=== PATIENT | female | born 1940 | race African-American/Black ===

== ENCOUNTER 2017-09-15 06:15 | Day surgery (SDC) | payer OTHER ==
[2017-09-13 14:41] LABS: Potassium 3.7 mEq/L (3.6-5.0)
[2017-09-13 14:47] LABS: Absolute Lymphocytes (CBC) 3.1 K/uL (0.7-4.9); Absolute Monocytes 0.7 K/uL (0.1-1.3); Absolute Neutrophil 3.7 K/uL (1.8-8.0); Basophils % 1.1 % (0-1.3); Eosinophils % 3.4 % (0-4.4); Hematocrit 41.5 % (36.0-45.0); Lymphocytes % 39.5 % (15.3-44.8); MCH 29.4 pg (27.0-35.0); MPV 10.7 fL (7.6-11.3); RBC Red Blood Cell Count 4.77 M/uL (3.86-4.86)
[2017-09-15] MEDS ORDERED: Ringers Lactate 1,000 ML IV ONE (06:19)
[2017-09-15] MEDS ORDERED: PROPOFOL 200 MG/20 ML VIAL IV ONE (07:12)
[2017-09-15] MEDS ORDERED: MIDAZOLAM HCL 2 MG/2 ML INJ ONE (07:12)
[2017-09-15] MEDS ORDERED: FENTANYL CITR 100 MCG/2 ML ONE (07:12)
[2017-09-15] MEDS ORDERED: LIDOCAINE 1% W/EPI 1:100,000 MDV 50 ML VIAL ONE (07:14)
[2017-09-15] MEDS ORDERED: NA CHLORIDE 0.9% 1,000 ML ONE (07:14)
--- NOTE | 2017-09-15 18:19 | OP ---
Date of Procedure: 09/15/2017 Surgeon: Kathleen Cardona MD Preoperative Diagnoses: Left lower quadrant pain, leiomyoma, thickened endometrium. Postoperative Diagnoses: Leiomyoma, endometrial polyp, left lower quadrant pain, and lichen simplex chronicus. Procedures Performed: 1.Hysteroscopy, using operative channel, polypectomy, and dilation and curettage. 2.Right perineal biopsy. Anesthesia: MAC plus paracervical block and local. Complications: No complications. Drains: No drains. Specimens: Endometrial polyp, curettings, and right perineal skin biopsy. Condition: Stable. Findings: In the uterine cavity that was anteflexed, both tubal ostia were visualized. There was a posterior sessile polyp about 1 cm completely adherent in its posterior aspect to the same width of t he posterior wall of the endometrial canal. Then lichen simplex chronicus very evident in the perine um, posterior aspect of the labia, and in the perianal areas, and therefore a biopsy was taken. Description Of Procedure: After informed consent was verified, she was taken back to the OR, placed in a supine fashion on the operating table. After MAC was given, she was placed in dorsal lithotomy position using Campos stirrups. Speculum was used to expose the cervix. Anterior lip injected with 1 % lidocaine mixed with 1:100,000 epinephrine, 7 cc here, then 7 cc at 4 and 8 o'clock positions at th e cervicovaginal junction for a paracervical block on each side. Once this was done, the cervix was prepped with Betadine x3. Anterior lip grasped with 2 Allis clamps and direct hysteroscopy using a S limLine hysteroscope. The cervical canal was entered directly and passed into the uterine cavity. T he findings were that there was an endometrial polyp that appeared to be vascular and hyperplastic, a nd the posterior aspect of this was adherent to the posterior aspect of the endometrial canal. So, I was attempting to scrape the polyp off the posterior wall using the tip of the camera, this was not working, and so I was unable to separate the polyp. So, the diagnostic scope was removed. Operative channel was placed using scissors through the operating channel. I took down the entire polyp in th e posterior wall, and this was removed with the help of graspers. Endometrial curettings were performed with a #1 curette. A very scant curettings were obtained. The n all the instruments were removed. Instrument, needle, and sponge counts were done and were correct . In the perineal area, the lichen simplex was very prominent. I injected it with 3 cc of local the n did an elliptical incision on the skin with the help of an 11-blade. The skin was excised, and the edges put together with the help of a 3-0 chromic in a [id number] fashion. There was excellent hemostasis. The patient tolerated the procedure well. She was recovered from anesthesia and taken to PACU in stable condition. She will follow up with me in 1 week for postop. JORDAN/ADAM Voice ID: [id number] Report ID: [id number]
== END 2017-09-15 08:57 | disposition home or self-care (01) ==
LOC: OR 06:15
PROVIDERS: ATTEND Obstetrics & Gynecology
PROC: 0UDB7ZX Extraction of Endometrium, Via Natural or Artificial Opening, Diagnostic (ICD-10-PCS; 2017-09-15)
PROC: 0UJD8ZZ Inspection of Uterus and Cervix, Via Natural or Artificial Opening Endoscopic (ICD-10-PCS; 2017-09-15)
PROC: 0WBN0ZX Excision of Female Perineum, Open Approach, Diagnostic (ICD-10-PCS; 2017-09-15)
PROC: 0UB97ZX Excision of Uterus, Via Natural or Artificial Opening, Diagnostic (ICD-10-PCS; principal; 2017-09-15 07:30)
DX: D25.9 Leiomyoma of uterus, unspecified (principal); L28.0 Lichen simplex chronicus; N84.0 Polyp of corpus uteri; I10 Essential (primary) hypertension; K57.90 Diverticulosis of intestine, part unspecified, without perforation or abscess without bleeding; M10.9 Gout, unspecified; Z91.048 Other nonmedicinal substance allergy status; Z79.82 Long term (current) use of aspirin; Z88.3 Allergy status to other anti-infective agents; Z80.7 Family history of other malignant neoplasms of lymphoid, hematopoietic and related tissues; Z82.49 Family history of ischemic heart disease and other diseases of the circulatory system
CPT/HCPCS: 36415; 56605; 58558; 80048; 85025; 88305; J2250; J3010; J7030

== ENCOUNTER 2020-11-10 16:21 | Emergency (ER) | payer MEDICARE, OTHER ==
[2020-11-10] MEDS ORDERED: LEVALBUTEROL 1.25 MG/3 ML NEB ONE (19:06)
[2020-11-10] MEDS ORDERED: MAGNESIUM SULFATE 1 gm IVPB 1 GM/100 ML BAG IV ONE (19:06)
[2020-11-10 19:33] LABS: Absolute Lymphocytes (CBC) 3.5 K/uL (0.7-4.9); Basophils % 0.6 % (0-1.3); Hematocrit 39.8 % (36.0-45.0); Lymphocytes % 30.4 % (15.3-44.8); MPV 9.3 fL (7.6-11.3); RBC Red Blood Cell Count 4.55 M/uL (3.86-4.86)
[2020-11-10 19:56] LABS: ALT/SGPT 20 U/L (12-78); AST/SGOT 21 U/L (15-37); Albumin 3.3 g/dL (3.4-5.0); Alkaline Phosphatase 67 U/L (45-117); BUN Blood Urea Nitrogen 16 mg/dL (7-18); Bicarbonate 28 mmol/L (21-32); Bilirubin Total 0.6 mg/dL (0.2-1.0); Glucose Level 88 mg/dL (74-106); Potassium 3.9 mmol/L (3.5-5.1); Protein, Total 8.9 g/dL (6.4-8.2); Sodium Level 136 mmol/L (136-145); Troponin (Emerg Dept Use Only) < 0.02 ng/mL (0.0-0.045)
[2020-11-10] MEDS ORDERED: CEFTRIAXONE/SWI 1gm 1 GM/10 ML SYR ONE (22:28)
[2020-11-10] MEDS ORDERED: dexAMETHasone 10 MG/ML VIAL ONE (22:28)
--- NOTE | 2020-11-11 07:51 | RAD REPORT ---
EXAM DESCRIPTION: RAD - Chest Single View - 11/10/2020 9:30 pm CLINICAL HISTORY: cough, fever COMPARISON: None TECHNIQUE: AP portable chest image was obtained 11/10/2020 9:30 pm . FINDINGS: No mass or consolidation. Lung markings at the left base are slightly increased relative t o the right but not definitive for infiltrate. Correlation is needed with any localizing exam finding s. There is no failure or volume overload present. Trachea is midline. Heart and vasculature are normal. No measurable pleural effusion and no pneumotho rax. No acute bony abnormality seen. No acute aortic findings suspected. IMPRESSION: No mass, consolidation or failure finding. Slight increase in lung markings noted at the left base on this baseline study. Minimal infiltrate ca nnot be excluded and needs correlation with exam findings.
--- NOTE | 2020-11-11 12:39 | EKG ---
Test Date: 2020-11-10 Test Time: 18:58:29 Business Process Consultant: TERRIE MEASUREMENT RESULTS: Intervals: Rate: 82 OH: 122 QRSD: 90 QT: 320 QTc: 373 Henderson: P: 47 OH: 122 QRS: 52 T: 57 INTERPRETIVE STATEMENTS: Normal sinus rhythm Nonspecific T wave abnormality Abnormal ECG Compared to ECG 09/07/2017 11:59:08 No significant changes Electronically Signed On 11-11-20 12:37:37 CDT by Phil Vela
--- NOTE | 2020-11-11 17:42 | ER ---
Nurse's Notes [facility] Name: You Briceño Age: 80 yrs Sex: Female : 1940 Arrival Date: 11/10/2020 Time: 16:24 Bed 23 Private MD: Diagnosis: Acute upper respiratory infection, unspecified Presentation: 11/10 17:19 Chief complaint: Patient states: Cough x 2 wks that just hasnt gone away. Denies fever kg at home. Pt saw PCP for it 2 wks ago and went to PCP today but was told they couldn't see her today, to come to ER. Coronavirus screen: Client denies travel out of the [place] in the last 14 days. At this time, unable to obtain information related to travel outside the [place] Client presents with at least one sign or symptom that may indicate coronavirus-19. Standard/surgical mask placed on the client. Provider contacted for isolation considerations. Ebola Screen: Patient negative for fever greater than or equal to 101.5 degrees Fahrenheit, and additional compatible Ebola Virus Disease symptoms Patient denies exposure to infectious person. Patient denies travel to an Ebola-affected area in the 21 days before illness onset. Initial Sepsis Screen: Does the patient meet any 2 criteria? No. Patient's initial sepsis screen is negative. Does the patient have a suspected source of infection? No. Patient's initial sepsis screen is negative. Risk Assessment: Do you want to hurt yourself or someone else? Patient reports no desire to harm self or others. Onset of symptoms was October 27, 2020. 17:19 Method Of Arrival: Ambulatory kg 17:19 Acuity: RORY 3 kg Triage Assessment: 17:22 General: Appears in no apparent distress. Behavior is calm, cooperative, appropriate kg for age, quiet. Pain: Complains of pain in diaphragm and xiphoid area. Historical: - Allergies: 17:22 Levofloxacin; kg - PMHx: 17:22 Hypertensive disorder; Gout; kg - PSHx: 17:22 tubal; kg - Immunization history:: Adult Immunizations up to date, Client reports receiving the 2nd dose of the Covid vaccine. - Social history:: Smoking status: Patient/guardian denies using tobacco, but has a distant history of tobacco abuse. Screenin:39 Abuse screen: Denies threats or abuse. Nutritional screening: No deficits noted. vg1 Tuberculosis screening: No symptoms or risk factors identified. Fall Risk No fall in past 12 months (0 pts). No secondary diagnosis (0 pts). IV access (20 points). Ambulatory Aid- None/Bed Rest/Nurse Assist (0 pts). Gait- Normal/Bed Rest/Wheelchair (0 pts) Mental Status- Oriented to own ability (0 pts). Total Myers Fall Scale indicates No Risk (0-24 pts). Assessment: 17:38 General: Appears in no apparent distress. comfortable, Behavior is calm, cooperative. vg1 Pain: Denies pain. Neuro: Level of Consciousness is awake, alert, obeys commands, Oriented to person, place, time, situation. Cardiovascular: Patient's skin is warm and dry. Respiratory: Reports cough that is productive, pain with cough Airway is patent Respiratory effort is even, unlabored, Breath sounds are diminished in left posterior lower lobe Breath sounds with wheezes in left upper lobe and left posterior upper lobe. GI: Patient currently denies nausea, vomiting. : No signs and/or symptoms were reported regarding the genitourinary system. EENT: No signs and/or symptoms were reported regarding the EENT system. Derm: Skin is intact, is healthy with good turgor. Musculoskeletal: Circulation, motion, and sensation intact. 19:57 Reassessment: Patient appears in no apparent distress at this time. Patient and/or vg1 family updated on plan of care and expected duration. Pain level reassessed. Patient is alert, oriented x 3, equal unlabored respirations, skin warm/dry/pink. Patient states feeling better. 20:51 Reassessment: Patient appears in no apparent distress at this time. Patient and/or vg1 family updated on plan of care and expected duration. Pain level reassessed. Patient is alert, oriented x 3, equal unlabored respirations, skin warm/dry/pink. Patient states feeling better. 21:47 Reassessment: Patient appears in no apparent distress at this time. Patient and/or vg1 family updated on plan of care and expected duration. Pain level reassessed. Patient is alert, oriented x 3, equal unlabored respirations, skin warm/dry/pink. Patient denies pain at this time. Patient states feeling better. Vital Signs: 17:19 BP 152 / 89; Pulse 83; Resp 20; Temp 99.3(O); Pulse Ox 99% on R/A; Weight 73.48 kg (R); kg Height 5 ft. 6 in. (167.64 cm); Pain 10/10; 17:39 BP 156 / 83; Pulse 84; Resp 20; Pulse Ox 99% ; vg1 18:00 BP 133 / 73; Pulse 80; Resp 16; Pulse Ox 99% ; vg1 19:00 BP 162 / 77; Pulse 82; Resp 12; Pulse Ox 99% ; vg1 19:56 BP 152 / 78; Pulse 88; Resp 16; Pulse Ox 99% ; vg1 20:00 BP 146 / 67; Pulse 80; Resp 16; Pulse Ox 99% on R/A; vg1 21:00 BP 120 / 82; Pulse 87; Resp 16; Pulse Ox 98% on R/A; vg1 17:19 Body Mass Index 26.15 (73.48 kg, 167.64 cm) kg ED Course: 16:24 Patient arrived in ED. mr 17:22 Triage completed. kg 17:28 Olivia Kay, RN is Primary Nurse. vg1 17:39 Patient has correct armband on for positive identification. Placed in gown. Bed in low vg1 position. Call light in reach. Side rails up X 1. Adult w/ patient. 17:40 Arm band placed on. vg1 17:43 Deo Stroud PA is PHCP. [facility] 17:43 Janes Vaughn MD is Attending Physician. [facility] 19:03 EKG done, by ED staff, reviewed by Deo DAVIES COVID swab sent to lab. Flu and/or vg1 RSV swab sent to lab. 19:17 Initial lab(s) drawn, by ak, sent to lab. Inserted saline lock: 22 gauge in left vg1 antecubital area, using aseptic technique. Blood collected. 19:17 First set of blood cultures drawn by me. vg1 19:35 Second set of blood cultures drawn by me. vg1 21:30 Chest Single View XRAY In Process Unspecified. EDMS 21:56 Report given to [facility]. vg1 22:57 No provider procedures requiring assistance completed. IV discontinued, intact, em bleeding controlled, No redness/swelling at site. Pressure dressing applied. Administered Medications: 19:26 Drug: Xopenex (levalbuterol) (3) 1.25 mg Route: Inhalation; vg1 19:56 Follow up: Response: No adverse reaction vg1 19:28 Drug: Magnesium Sulfate 1 grams Route: IVPB; Infused Over: 1 hrs; Site: left vg1 antecubital; 20:26 Follow up: Response: No adverse reaction; IV Status: Completed infusion; IV Intake: vg1 100ml 22:00 Drug: Rocephin (cefTRIAXone) 1 grams Route: IV; Rate: calculated rate; Site: left ld1 antecubital; 22:58 Follow up: Response: No adverse reaction; IV Status: Completed infusion; IV Intake: 10mlem 22:37 Drug: Decadron - Dexamethasone 10 mg Route: IVP; Site: left antecubital; em 22:46 Follow up: Response: No adverse reaction ld1 Intake: 20:26 IV: 100ml; Total: 100ml. vg1 22:58 IV: 10ml; Total: 110ml. em Outcome: 22:41 Discharge ordered by MD. oscar 22:57 Discharged to home ambulatory, with family. em 22:57 Condition: stable 22:57 Discharge instructions given to patient, family, Instructed on discharge instructions, follow up and referral plans. medication usage, Demonstrated understanding of instructions, follow-up care, medications, Prescriptions given X 2. 22:58 Patient left the ED. em Signatures: Dispatcher [employer] Deo Paulino PA PA jmm Rivera Carmela OcasioNoam, Olivia Gómez RN, RN RN vg1 Belkis Lo RN RN ld1 Margarita Lacy RN RN kg
--- NOTE | 2020-11-11 17:42 | EDPHYS ---
Physician Documentation [facility] Name: You Briceño Age: 80 yrs Sex: Female : 1940 Arrival Date: 11/10/2020 Time: 16:24 Bed 23 Private MD: ED Physician Janes Vaughn HPI: 11/10 18:37 This 80 yrs old Black Female presents to ER via Ambulatory with complaints of Cough. jmm 18:37 Onset: The symptoms/episode began/occurred gradually, 2 week(s) ago. Modifying factors: jmm The symptoms are alleviated by nothing, the symptoms are aggravated by nothing. Associated signs and symptoms: Pertinent negatives: fever. This is an 80-year-old female with history of hypertension that presents emerged part with complaints of cough and progressively worsening wheezing over the past 2 weeks. Patient denies fever. States she does have some chills. Denies vomiting.. Historical: - Allergies: 17:22 Levofloxacin; kg - PMHx: 17:22 Hypertensive disorder; Gout; kg - PSHx: 17:22 tubal; kg - Immunization history:: Adult Immunizations up to date, Client reports receiving the 2nd dose of the Covid vaccine. - Social history:: Smoking status: Patient/guardian denies using tobacco, but has a distant history of tobacco abuse. ROS: 18:37 Constitutional: Positive for chills. jmm 18:37 Respiratory: Positive for cough. 18:37 All other systems are negative. Exam: 18:37 Constitutional: This is a well developed, well nourished patient who is awake, alert, jmm and in no acute distress. Head/Face: atraumatic. Eyes: EOMI, no conjunctival erythema appreciated ENT: Moist Mucus Membranes Neck: Trachea midline, Supple Chest/axilla: Normal chest wall appearance and motion. Cardiovascular: Regular rate and rhythm. No edema appreciated 18:37 Back: Normal ROM Skin: General appearance color normal MS/ Extremity: Moves all extremities, no obvious deformities appreciated, no edema noted to the lower extremities Neuro: Awake and alert, normal gait Psych: Behavior is normal, Mood is normal, Patient is cooperative and pleasant 18:37 Respiratory: the patient does not display signs of respiratory distress, Respirations: normal, Breath sounds: wheezing: that is moderate, is heard diffusely. Vital Signs: 17:19 BP 152 / 89; Pulse 83; Resp 20; Temp 99.3(O); Pulse Ox 99% on R/A; Weight 73.48 kg (R); kg Height 5 ft. 6 in. (167.64 cm); Pain 10/10; 17:39 BP 156 / 83; Pulse 84; Resp 20; Pulse Ox 99% ; vg1 18:00 BP 133 / 73; Pulse 80; Resp 16; Pulse Ox 99% ; vg1 19:00 BP 162 / 77; Pulse 82; Resp 12; Pulse Ox 99% ; vg1 19:56 BP 152 / 78; Pulse 88; Resp 16; Pulse Ox 99% ; vg1 20:00 BP 146 / 67; Pulse 80; Resp 16; Pulse Ox 99% on R/A; vg1 21:00 BP 120 / 82; Pulse 87; Resp 16; Pulse Ox 98% on R/A; vg1 17:19 Body Mass Index 26.15 (73.48 kg, 167.64 cm) kg MDM: 18:37 Patient medically screened. oscar 22:39 Data reviewed: vital signs, nurses notes. Counseling: I had a detailed discussion with oscar the patient and/or guardian regarding: lab results, radiology results, the need for outpatient follow up, to return to the emergency department if symptoms worsen or persist or if there are any questions or concerns that arise at home. ED course: Decreased wheezing on reexamination. Patient states that she feels much better. I do not suspect sepsis at this time. Patient was prescribed oral antibiotics and otherwise given strict return precautions. Patient understood and agrees with plan of care.. 11/10 18:39 Order name: CBC with Diff; Complete Time: 19:34 [facility] 11/10 18:39 Order name: CMP; Complete Time: 19:59 [facility] 11/10 18:39 Order name: Troponin (emerg Dept Use Only); Complete Time: 19:59 [facility] 11/10 18:39 Order name: Procalcitonin; Complete Time: 21:03 [facility] 11/10 18:39 Order name: Lactate; Complete Time: 19:52 [facility] 11/10 18:39 Order name: Flu; Complete Time: 20:12 [facility] 11/10 18:44 Order name: Blood Culture Adult (2) [facility] 11/10 18:45 Order name: Blood Culture [facility] 11/10 20:28 Order name: SARS-COV-2 RT PCR; Complete Time: 20:28 [facility] 11/10 21:18 Order name: Chest Single View XRAY [facility] 11/10 18:39 Order name: Saline Lock; Complete Time: 19:22 [facility] 11/10 18:39 Order name: EKG - Nurse/Tech; Complete Time: 19:03 [facility] Administered Medications: 19:26 Drug: Xopenex (levalbuterol) (3) 1.25 mg Route: Inhalation; vg1 19:56 Follow up: Response: No adverse reaction vg1 19:28 Drug: Magnesium Sulfate 1 grams Route: IVPB; Infused Over: 1 hrs; Site: left vg1 antecubital; 20:26 Follow up: Response: No adverse reaction; IV Status: Completed infusion; IV Intake: vg1 100ml 22:00 Drug: Rocephin (cefTRIAXone) 1 grams Route: IV; Rate: calculated rate; Site: left ld1 antecubital; 22:58 Follow up: Response: No adverse reaction; IV Status: Completed infusion; IV Intake: 10mlem 22:37 Drug: Decadron - Dexamethasone 10 mg Route: IVP; Site: left antecubital; em 22:46 Follow up: Response: No adverse reaction ld1 Disposition: 11/11 06:04 Co-signature as Attending Physician, Janes Vaughn MD. rn Disposition Summary: 11/10/20 22:41 Discharge Ordered Location: Home [facility] Condition: Stable [facility] Diagnosis - Acute upper respiratory infection, unspecified [facility] Followup: [facility] - With: Private Physician - When: 2 - 3 days - Reason: Recheck today's complaints, Continuance of care, Re-evaluation by your physician Discharge Instructions: - Discharge Summary Sheet [facility] - Upper Respiratory Infection, Adult [facility] Forms: - Medication Reconciliation Form [facility] - Thank You Letter [facility] - Antibiotic Education [facility] - Prescription Opioid Use [facility] Prescriptions: - albuterol sulfate 90 mcg/actuation Inhalation HFA aerosol inhaler - inhale 2 puff by INHALATION route every 4 hours; 1 Inhaler; Refills: 0, Product [facility] Selection Permitted - Zithromax Z-Simon 250 mg Oral Tablet - take 1 tablet by ORAL route as directed for 5 days Day 1 - take two (2) tablets [facility] one time. Day 2, 3, 4 , 5 take one (1) tablet once daily.; 6 tablet; Refills: 0, Product Selection Permitted Signatures: Dispatcher [employer] Deo Paulino PA PA jmm Munoz, Edgar, RN RN Janes Ross MD MD rn Garcia, Victoria, RN RN vg1 Belkis Lo RN RN ld1 Margarita Lacy RN RN kg Corrections: (The following items were deleted from the chart) 11/10 19:35 18:40 CORONAVIRUS+MR.LAB.BRZ ordered. EDMS EDMS
[2020-11-12 14:59] VITALS: TEMP 99.3
[2020-11-12 15:09] VITALS: BP 120/82; O2SAT 98
== END 2020-11-10 22:58 | disposition home or self-care (01) ==
LOC: ER 16:21
DX: J06.9 Acute upper respiratory infection, unspecified (principal); I10 Essential (primary) hypertension; Z20.822 Contact with and (suspected) exposure to COVID-19; Z88.3 Allergy status to other anti-infective agents
CPT/HCPCS: 93005; 87040 ×2; 85025; 36415; 83605; 84484; 80053; 84145; 87804 ×2; 71045; U0003; J3475; J1100; J0696

== ENCOUNTER 2021-05-19 08:49 | Day surgery (SDC) | payer OTHER ==
[2021-05-19] MEDS ORDERED: Ringers Lactate 1,000 ML IV ONE (09:07)
[2021-05-19] MEDS ORDERED: LIDOCAINE 2% MPF 5 ML VIAL ONE ×2 (09:27→10:40)
[2021-05-19] MEDS ORDERED: propofoL 200 MG/20 ML VIAL IV ONE ×2 (09:27→10:40)
[2021-05-19] MEDS ORDERED: FENTANYL CITR 100 MCG/2 ML ONE ×2 (09:31→10:40)
[2021-05-19] MEDS ORDERED: LIDOCAINE 1% W/EPI 1:100,000 MDV 20 ML VIAL ONE (10:51)
[2021-05-19] MEDS ORDERED: ONDANSETRON 4 MG/2 ML VIAL ONE (11:31)
[2021-05-19] MEDS ORDERED: KETOROLAC 30 MG/ML INJ ONE (11:56)
[2021-05-19] MEDS ORDERED: IBUPROFEN 200 MG TAB PO PRN (12:11)
--- NOTE | 2021-05-19 12:13 | P.BOP ---
Preoperative diagnosis: PMB Postoperative diagnosis: same Primary procedure: hysteroscopy d/c (myosure lite ) used Estimated blood loss: min Specimen: EMC Findings: AF small cavity, increased erythema, no masses Anesthesia: General Complications: None Transferred to: Recovery Room Condition: Good
[2021-05-19 12:16] VITALS: O2SAT 100
[2021-05-19 14:11] VITALS: BP 143/64; TEMP 97.3
[2021-05-19] MEDS ORDERED: [UNRECOGNIZED DRUG - MIXTURE] TOP SCH (21:00)
[2021-05-20] MEDS ORDERED: HOME MED 1 EA UNK (Atenolol [Tenormin] 100 MG Tablet) PO SCH (06:00)
[2021-05-20] MEDS ORDERED: allopurinoL 100 MG TAB PO SCH (09:00)
[2021-05-20] MEDS ORDERED: HOME MED 1 EA UNK (Calcium Carbonate/Vitamin D3 [Caltrate 600 Plus D3 Tablet] Tablet) PO SCH (09:00)
--- NOTE | 2021-05-20 11:10 | OP ---
Date of Procedure: 05/19/2021 Surgeon: Kathleen Cardona MD Preoperative Diagnosis: Postmenopausal bleeding. Postoperative Diagnosis: Postmenopausal bleeding. Procedures Performed: Hysteroscopy, D and C, and MyoSure Lite was used to perform D and C. Estimated Blood Loss: Minimal. Specimens: Endometrial curettings. Findings: Small cavity, increased erythema on the endometrial lining with no masses were seen. The entire cavity was well visualized. Anesthesia: General with LMA. Complications: No complications. Condition: Stable. The patient has postmenopausal bleeding. Endometrium appeared to be thickened on transvaginal ultras ound, needed a biopsy, and given her age, it was do an adequate sample, so she was consent ed and brought to the OR. Procedure In Detail: After informed consent was verified, she was taken back to the OR and placed in supine fashion on the operating table. General anesthesia was given. She was placed in a dorsal po sition. Pelvic exam was performed. Speculum was placed to expose the cervix. Anterior lip was gras ped with a single-tooth tenaculum. This was done after . Then, the cervix was entered und er direct visualization with a diagnostic lens, and once I entered the uterine cavity and visualized, the scope was pulled out. Cervical dilators were used to dilate with a 16-Guamanian. Then, the MyoSur e device was taken. The scope was taken with primed MyoSure Lite device was inserted through to get an adequate sample and the tissue was very flat and I want to ensure there was adequate sampling. Th is was used to sample all agustin of the uterus without any problems. Then, once this was taken, the s ample was retrieved. The scope was removed after pictures were taken. All the instruments were vance jocelynn. Instrument, needle, and sponge counts were done and were correct at the end of the case. The p atient tolerated the procedure well. She was recovered from anesthesia and taken to PACU in stable c ondition. She has a 1-week follow up with me for discussion of the cultures. I attempted to call he r [id number], but I was unable to reach her at the number that the patient had shared. JORDAN/ADAM Voice ID: [id number] Report ID: [id number]
== END 2021-05-19 13:40 | disposition home or self-care (01) ==
LOC: OR 08:49
PROVIDERS: ATTEND Obstetrics & Gynecology
PROC: 0UJD8ZZ Inspection of Uterus and Cervix, Via Natural or Artificial Opening Endoscopic (ICD-10-PCS; 2021-05-19)
PROC: 0UDB7ZX Extraction of Endometrium, Via Natural or Artificial Opening, Diagnostic (ICD-10-PCS; principal; 2021-05-19 10:30)
DX: N95.0 Postmenopausal bleeding (principal); U07.1 COVID-19
CPT/HCPCS: 88305; 58558; U0002; J2704; J3010; J7120; J2405

== ENCOUNTER 2023-02-04 08:34 | Emergency (ER) | payer OTHER ==
--- OUTSIDE RECORDS SUMMARY | 2023-02-04 08:41 | XMS REPORT | Continuity of Care Document ---
:1940 Author Organization [facility] t Address [address] [place] [address] Care Team Providers Name Role Phone [email or web address] Attending Clinician Unavailable Luis Carlos Means Attending Clinician Fercho Pham Attending Clinician LUIS CARLOS MEANS Attending Clinician Unavailable FERCHO PHAM Attending Clinician Unavailable VISIT, NURSE MARIANNE DICKERSON Attending Clinician Unavailable Charli Tate Attending Clinician Edd Barahona Attending Clinician Lino Henderson Attending Clinician VISIT, NURSE LYNN MAMMTricia Attending Clinician Unavailable Carey Jya Attending Clinician Isadora Jacques Attending Clinician [email or web address] Admitting Clinician Unavailable Carey Jay Admitting Clinician Payers Payer Name Policy Type Policy Number Effective Date Expiration Date [employer] [id number] (MEDICARE REPLACEMENT/ADVANTAGE - PPO) Problems Condition Condition Condition Status Onset Resolution Last Treating Co mments Source Name Details Category Date Date Treatment Clinician Date Diverticul Diverticu Diagnosis Active 2022-04-24 Memoria itis litis 1-03 11:53:48 l (disorder) (disorder) 00:00: He rmann Active 00 04/20/2022 Diagnosis 04/24/2022 Medical Group, [facility] [place], [place],[facility] Gastroente rolvaleriy [place] Patient Patient Diagnosis Active 2021-042022-02-05 Memoria encounter encounter 04:47:38 l status status 00:00: Yury (finding) (finding) 00 Active 02/02/2022 Diagnosis 02/05/2022 Medical Group COPD COPD Diagnosis Active 2020-042021-05-12 Mem oria Active 12:42:00 l 04/15/2021 00:00: Rm ZEPEDA [place] FAMILY FAMILY Diagnosis Active 2021-01-05 Me morijonathon HISTORY OF HISTORY OF 12-20 10:27:00 l COLON COLON 00:00: Yury CANCER-Z80 CANCER-Z80 00 .0 .0 Active 12/20/2020 [place] R10.9 - R10.9 - Diagnosis Active 2020-08-04 Memoria UNSPECIFIE UNSPECIFIE 07-15 12:06:00 l D D 00:01: Yury ABDOMINAL ABDOMINAL 00 PAIN K57.8 PAIN K57.8 Active 07/15/2020 [facility] [place] DIVERTICUL DIVERTICU Diagnosis Active 2017-12-11 Memoria TIS LTIS 16 21:51:00 l Active 00:00: Yury 12/01/2017 00 [place] R10.32 - R10.32 - Diagnosis Active 2017-06-25 Memoria LEFT LOWER LEFT LOWER 3-06 10:39:00 l QUADRANT QUADRANT 00:01: Rm norris PAIN PAIN 00 K57.90 K57.90 Active 06/21/2017 [facility] [place] 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 Medical Group, [facility] [place], [facility] Hyperurice Problem Active 2017-04-16 M emoria shelley Hyperurice 9 01:17:10 l (disorder) shelley 00:00: Rm n (disorder) 00 Active 12/21/2013 Problem 04/16/2017 Data migrated from [employer] on 09/14/14. Medical Group Foot pain Foot pain Problem Active 2017-04-16 Memoria (finding) (finding) 12-10 01:17:10 l Active 00:00: Yury 12/10/2013 00 Problem 04/16/2017 Data migrated from [employer] on 09/14/14. Medical Group Swelling Swelling Problem Active 2017-04-16 Memoria of limb of limb 12-10 01:17:10 l (finding) (finding) 00:00: Stewart te Active 00 12/10/2013 Problem 04/16/2017 Data migrated from [employer] on 09/14/14. Medical Group Backache Backache Problem Active 2017-04-16 Memoria (finding) (finding) 07-05 01:17:10 l Active 00:00: Yury 07/05/2013 00 Problem 04/16/2017 Data migrated from [employer] on 09/14/14. Medical Group Hip pain Hip pain Problem Active 2017-04-16 Memoria (finding) (finding) 06-05 01:17:10 l Active 00:00: Yury 06/05/2013 00 Problem 04/16/2017 Data migrated from [employer] on 09/14/14. Medical Group Knee joint Knee Problem Active 2012-042017-04-16 M [facility] effusion joint 0- 01:17:10 l (disorder) effusion 00:00: Stewart te (disorder) 00 Active 02/07/2013 Problem 04/16/2017 Data migrated from [employer] on 09/14/14. Medical Group Neoplasm Neoplasm Problem Active 2017-04-16 Memoria of of 9-16 01:17:10 l uncertain uncertain 00:00: Stewart te behavior behavior 00 of skin of skin (disorder) (disorder) Active 01/01/2013 Problem 04/16/2017 Data migrated from [employer] on 09/14/14. Medical Group Acute Acute Problem Active 2017-04-16 Memor ia meniscal meniscal 6-03 01:17:10 l tear, tear, 00:00: Yury medial medial 00 (disorder) (disorder) Active 09/18/2012 Problem 04/16/2017 Data migrated from [email or web address] on 09/14/14. Medical Group Knee pain Knee Problem Active 2012-2017-04-16 Me moria (finding) pain 6-03 01:17:10 l (finding) 00:00: [place] Active 00 09/18/2012 Problem 04/16/2017 Data migrated from [email or web address] on 09/14/14. Medical Group Nausea Nausea Problem Active 2011-042017-04-16 Mem oria (finding) (finding) 1-06 01:17:10 l Active 00:00: Yury 02/22/2012 00 Problem 04/16/2017 Data migrated from [employer] on 09/14/14. Medical Group Left lower Left Problem Active 2011-042017-04-16 M emoria quadrant lower 0-22 01:17:10 l pain quadrant 00:00: Yury (finding) pain 00 (finding) Active 02/07/2012 Problem 04/16/2017 Data migrated from [employer] on 09/14/14. Medical Group Diverticul Diverticu Problem 2017-10-02 Memoria osis of losis of 11:21:50 l intestine, intestine, He rmann part part unspecifie unspecifie d, without d, without perforatio perforatio n or n or abscess abscess without without bleeding bleeding 10/02/2017 [facility] [place] Leiomyoma Leiomyoma Problem 2017-10-02 Memoria of uterus, of uterus, 11:21:50 l unspecifie unspecifie He rmann d d 10/02/2017 [facility] [place] Fatty Fatty Problem 2017-10-02 Memor ia (change (change 11:21:50 l of) liver, of) liver, He rmann not not elsewhere elsewhere classified classified 8 [facility] [place] Age-relate Age-relat Problem 2018-06-22 Memoria d ed 12:43:23 l osteoporos osteoporos He rmann is without is without current current pathologic pathologic al al fracture fracture 06/22/2018 [place] Arthritis Arthritis Problem Resolve 2021-09-25 Memoria (disorder) (disorder) d 03:44:43 l Resolved [place] [facility]20[facility] Gouty Gouty Problem Resolve 2021-09-25 Kenji kiera arthropath arthropath d 03:44:43 l y y Yury (disorder) (disorder) Resolved Problem 09/25/2021 [facility] [place] Hypertensi Hypertens Problem Resolve 2021-09-25 Memoria ve kisha d 03:44:43 l disorder, disorder, Herm te systemic systemic arterial arterial (disorder) (disorder) Resolved Problem 09/25/2021 [facility] [place] Eruption Eruption Problem Active 2017-04-16 Memoria due to due to 01:17:10 l drug drug Yury (disorder) (disorder) Active Problem 04/16/2017 Medical [facility] Hyponatrem Hyponatre Problem Active 2017-04-16 Memoria ia shelley 01:17:10 l (disorder) (disorder) He rmann Active Problem 04/16/2017 Data migrated from [email or web address] on 09/14/14. Medical [facility] Mass of Mass of Problem Active 2017-04-16 Me moria skin skin 01:17:10 l (finding) (finding) Herm te Active Problem 04/16/2017 [facility] Group Screening Screening Problem Active 2017-12-08 Memoria status status 16:44:40 l (finding) (finding) Herm te Active Problem 12/08/2017 [facility] [place] Shoulder Shoulder Problem Active 2017-04-16 Memoria pain pain 01:17:10 l (finding) (finding) Herm te Active Problem 04/16/2017 Right shoulder pain Medical [facility] Skin Skin Problem Active 2017-04-16 Memor ia lesion lesion 01:17:10 l (disorder) (disorder) He rmann Active Problem 04/16/2017 [facility] Group Weight Weight Problem Active 2017-12-08 Kenji kiera decreased decreased 16:44:40 l (finding) (finding) Herm te Active Problem 12/08/2017 [facility] [place] Osteoporos Problem Active 2021-01-07 M emoria is Osteoporos 21:46:31 l (disorder) is Rm n (disorder) Active Problem 01/07/2021 Data migrated from [email or web address] on 09/14/14. [facility] [place] Drug Drug Problem Active 2020-08-06 Memor ia therapy therapy 23:30:55 l finding finding Yury (finding) (finding) Active Problem 08/06/2020 Medical Group, [facility] [place], [place] Body mass Body mass Problem Active 2018-06-22 Memoria index index 12:43:23 l index index [place] - overweight overweight (finding) (finding) Active Problem 06/22/2018 Medical Group, [facility] [place], [place] Breast Breast Problem Active 2018-06-22 Kenji kiera neoplasm neoplasm 12:43:23 l screening screening Herm te (procedure (procedure ) ) Active Problem 06/22/2018 Medical Group, [place] Diverticul Problem Active 2022-08-12 M emoria ar disease Diverticul 09:25:08 l (disorder) ar disease He rmann (disorder) Active Problem 08/12/2022 Medical Group, [facility] [place], [facility],[facility] Essential Essential Problem Active 2022-08-12 Memoria hypertensi hypertensi 09:25:08 l on on Yury (disorder) (disorder) Active Problem 08/12/2022 Data migrated from [facility] on 09/14/14. 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 09:25:08 l et et [place] atrophicus atrophicus (disorder) (disorder) Active Problem 08/12/2022 [facility] Osteoarthr Osteoarth Problem Active 2022-08-12 Memoria itis ritis 09:25:08 l (disorder) (disorder) He rmann Active Problem 08/12/2022 Medical Group, [facility], [facility],[facility] Uterine Uterine Problem Active 2022-08-12 Me moria leiomyoma leiomyoma 09:25:08 l (disorder) (disorder) He rmann Active Problem 08/12/2022 Medical Group, [facility], [facility],[facility] Mixed Mixed Problem Active 2022-05-08 [facility] hyperlipid hyperlipid 08:55:53 l emia emomega Yury (disorder) (disorder) Active Problem 05/08/2022 Medical Group, [facility] [place],[facility] K57.92 - K57.92 - Diagnosis Active 2022-05-05 Memoria 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, INTEST, Yury PART UNSP, PART UNSP, Active [facility] [place] Respirator Respirato Problem Resolve 2017-04-16 2017-04-16 Memoria y ry d 07-15 01:17:10 01:17:10 l syncytial syncytial 00:00: Herm te virus virus 00 bronchitis bronchitis (disorder) (disorder) Resolved 07/16/2015 Problem 04/16/2017 Medical Group Long-term Problem Resolve 2011-042017-04-16 2017-04-16 Memoria drug Long-term d 01:17:10 01:17:10 l therapy drug 00:00: Yury (procedure therapy 00 ) (procedure ) Resolved 02/07/2012 Problem 04/16/2017 Data migrated from [facility] on 09/14/14. Medical Group History of Past Illness Condition Condition Condition Status Onset Resolution Last Treating Co mments Source Name Details Category Date Date Treatment Clinician Date Abnormal Abnormal Diagnosis 2022-08-12 2022-08-12 Memoria globulin globulin 4-24 09:25:08 09:25:08 l level level 21:29: [place] (finding) (finding) 00 08/09/2022 Diagnosis 08/12/2022 [facility] Internal Medicine Silva Diverticul Diverticu Diagnosis 2022-04-24 2022-04-24 Memoria a of la of 04-20 11:53:48 11:53:48 l intestine intestine 22:33: Herm te (disorder) (disorder) 00 04/20/2022 [facility] of History Diagnosis 2022-04-24 2022-04-24 Memoria polyp of of polyp 04-20 11:53:48 11:53:48 l colon of colon 22:33: [place] (situation (situation 00 ) ) 04/20/2022 Diagnosis 04/24/2022 [facility] Reinaldo Silva Vitamin D Vitamin D Diagnosis 2021-042022-02-05 2022-02-05 Memoria deficiency deficiency 0-18 04:47:38 04:47:38 l (disorder) (disorder) 15:45: He usha 02/02/2022 00 Diagnosis 02/05/2022 Medical Group, [facility] [place], [facility] Well adult Well Diagnosis 2021-042022-02-05 2022-02-05 Memoria monitoring adult 0-18 04:47:38 04:47:38 l check done monitoring 15:45: He usha (finding) check done 00 (finding) 02/02/2022 Diagnosis 02/05/2022 Medical Group Hidradenit Hidradeni Problem 2021-09-24 2021-09-24 Memoria is tis 09-21 01:59:31 01:59:31 l suppurativ suppurativ 20:29: Guillermo kerr a a 00 09/21/2021 2 Medical Group Vitamin D Vitamin D Problem 2021-08-27 2021-08-27 Memoria deficiency deficiency 08-24 01:49:07 01:49:07 l , , 18:10: Yury unspecifie unspecifie 00 d d 08/24/2021 2 Medical Group Essential Essential Problem 2021-08-27 2021-08-27 Memoria (primary) (primary) 08-24 01:49:07 01:49:07 l hypertensi hypertensi 18:10: Guillermo kerr on on 00 08/24/2021 2 Medical Group, [place] Gout, Gout, Problem 2021-08-27 2021-08-27 M emoria unspecifie unspecifie 08-24 01:49:07 01:49:07 l d d 18:10: Yury 08/24/2021 00 2 Medical Group, [place] Other Other Problem 2021-08-27 2021-08-27 M emoria abnormal abnormal 08-24 01:49:07 01:49:07 l glucose glucose 18:10: Yury 08/24/2021 00 2 Medical Group Mixed Mixed Problem 2021-08-27 2021-08-27 M emoria hyperlipid hyperlipid 08-24 01:49:07 01:49:07 l emia emia 18:10: Yury 08/24/2021 00 2 [facility] [place] Acute Acute Problem 2021-08-27 2021-08-27 M emoria upper upper 08-24 01:49:07 01:49:07 l respirator respirator 17:00: Guillermo kerr y y 00 infection, infection, unspecifie unspecifie d d 08/24/2021 08/27/2021 Medical Group Chronic Chronic Problem 2021-08-27 2021-08-27 Memoria obstructiv obstructiv 08-24 01:49:07 01:49:07 l e e 17:00: Yury pulmonary pulmonary 00 disease, disease, unspecifie unspecifie d d 08/24/2021 08/27/2021 Medical Group Personal Personal Problem 2020-042021-04-12 2021-04-12 Memoria history of history of 06-10 01:12:12 01:12:12 l nicotine nicotine 20:06: Rm n dependence dependence 00 04/09/2021 04/12/2021 Medical Group, [place] Impaired Impaired Problem 2020-042021-02-26 2021-02-26 Memoria fasting fasting 04-25 01:19:45 01:19:45 l glucose glucose 19:39: Yury 02/23/2021 00 02/26/2021 Medical Group Diverticul Diverticu Problem 2018-06-22 2018-06-22 Memoria itis of litis of 12-12 12:43:23 12:43:23 l large large 03:04: [place] intestine intestine 46 without without perforatio perforatio n or n or abscess abscess without without bleeding bleeding 12/12/2017 9 [facility] [place] Left lower Left Problem 2017-10-02 2017-10-02 Memoria quadrant lower 3-16 11:21:50 11:21:50 l pain quadrant 04:28: Yury pain 01 07/01/2017 8 [facility] [place] Allergies, Adverse Reactions, Alerts Allergy Allergy Status Severity Reaction(s) Onset Inactive Treating Comm ents Source Name Type Date Date Clinician levoflox levoflox Active Memori a acin<sup acin<sup l >1</sup> >1</sup> Rm n Social History Social Habit Start Date Stop Date Quantity Comments Source Social History 2020-12-31 2020-12-31 [facility] Jacob butts 16:37:36 16:37:36 Smoking Status Start Date Stop Date Source Tobacco smoking status 2022-08-09 18:53:22 2022-08-09 18:53:22 M emorial Yury Medications Ordered Filled Start Stop Current Ordering Indication Dosage Frequency Signature Comments Components Source Medication Medication Date Date Medication? Clinician (SIG) Name Name Albuterol Yes 2 Memoria (Eqv-ProAir 4-25 inhalation l HFA) 90 17:23: , Yury mcg/inh 00 INHALATION inhalation , Q6H, PRN aerosol NEEDED FOR WHEEZING, # 25.5 gm, 1 Refill(s), Pharmacy: [facility] ([facility]), 165.1, cm, 08/09/22 13:53:00 CDT, Height, 74.261, kg, 08/09/22 13:53:00 CDT, Weight allopurinol Yes = 2 tab, Me moria 100 mg oral 4-24 PO, Daily, l tablet 21:31: # 180 tab, Perlita nn 00 3 Refill(s), Pharmacy: [facility] ([facility] 165.1, cm, 08/09/22 13:53:00 CDT, Height, 74.261, kg, 08/09/22 13:53:00 CDT, Weight atenolol Yes = 1 tab, Memor ia 100 mg oral 2-08 PO, Daily, l tablet 03:20: # 100 tab, Perlita nn 00 3 Refill(s), Pharmacy: [facility] ([facility]), 167.64, cm, 04/21/22 11:06:00 HUMANITIES PROFESSOR, Height, 73.636, kg, 04/21/22 11:06:00 HUMANITIES PROFESSOR, Weight hydrochloro Yes 1 tab, PO, Memoria thiazide-tr 2-08 Daily, # l iamterene 03:20: 100 tab, 3 He rmann 25 mg-37.5 00 Refill(s), mg oral Pharmacy: tablet [facility] ([facility]), 167.64, cm, 04/21/22 11:06:00 HUMANITIES PROFESSOR, Height, 73.636, kg, 04/21/22 11:06:00 HUMANITIES PROFESSOR, Weight allopurinol Yes = 2 tab, Me moria 100 mg oral 1-09 PO, Daily, l tablet 19:09: # 180 tab, Perlita nn 00 0 Refill(s), Pharmacy: [facility] ([facility] 167.64, cm, 04/21/22 11:06:00 HUMANITIES PROFESSOR, Height, 73.636, kg, 04/21/22 11:06:00 HUMANITIES PROFESSOR, Weight Flagyl 500 2021-04 Yes 500 mg = 1 M emoria mg oral 2-30 tab, PO, l tablet 16:04: TID, X 14 Rm n 00 day, # 42 tab, 0 Refill(s), Pharmacy: [id number], 165.1, cm, 02/02/22 10:32:00 CDT, Height, 75.114, kg, 02/02/22 10:32:00 CDT, Weight ProAir HFA 2021-04 Yes 2 puff, Kenji kiera 90 mcg/inh 0-18 INHALER, l inhalation 16:23: Q6H, PRN Her loza aerosol 00 for with wheezing, adapter # 3 ea, 0 Refill(s), Pharmacy: [facility] ([facility]), 165.1, cm, 02/02/22 10:32:00 CDT, Height, 75.114, kg, 02/02/22 10:32:00 CDT, Weight Bactrim DS Yes 1 tab, PO, M emoria 800 mg- 160 6-06 BID, X 7 l mg oral 20:29: day, # 14 Perlita nn tablet 00 tab, 0 Refill(s), Pharmacy: [id number], 165.1, cm, 08/24/21 13:10:00 CDT, Height, 73.693, kg, 08/24/21 13:10:00 CDT, Weight ProAir HFA Yes 2 puff, Kenji kiera 90 mcg/inh 5-09 INHALER, l inhalation 18:43: Q6H, PRN Her loza aerosol 00 for with wheezing, adapter # 8 gm, 0 Refill(s), Pharmacy: [facility], 165.1, cm, 08/24/21 13:10:00 CDT, Height, 73.693, kg, 08/24/21 13:10:00 CDT, Weight atenolol 0 Yes 100 mg = 1 Mem oria 100 mg oral 5-09 tab, PO, l tablet 18:43: Daily, # Yury 00 90 tab, 3 Refill(s), Pharmacy: [facility], 165.1, cm, 08/24/21 13:10:00 CDT, Height, 73.693, kg, 08/24/21 13:10:00 CDT, Weight hydrochloro Yes 1 tab, PO, Memoria thiazide-tr 5-09 Daily, # l iamterene 18:43: 90 tab, 3 Her loza 25 mg-37.5 00 Refill(s), mg oral Pharmacy: tablet [facility], 165.1, cm, 08/24/21 13:10:00 CDT, Height, 73.693, kg, 08/24/21 13:10:00 CDT, Weight allopurinol 0 Yes = 2 tab, Me moria 100 mg oral 2-17 PO, Daily, l tablet 21:46: # 180 tab, Perlita nn 00 3 Refill(s), Pharmacy: [facility], 165.1, cm, 04/09/21 13:25:00 HUMANITIES PROFESSOR, Height, 72.273, kg, 04/09/21 13:25:00 HUMANITIES PROFESSOR, Weight 200 ACTUAT 2020-04 Yes 2 puff, Kenji kiera Albuterol 2-23 INHALER, l 0.09 20:09: Q6H, PRN Yury MG/ACTUAT 00 for Metered wheezing, Dose # 8.5 gm, Inhaler 0 [ProAir Refill(s), HFA] Pharmacy: [id number], 165.1, cm, 04/09/21 13:25:00 HUMANITIES PROFESSOR, Height, 72.273, kg, 04/09/21 13:25:00 HUMANITIES PROFESSOR, Weight lidocaine No Route: IV, Me moria (ANES) 9- Drug form: l 17:21: INJ, ONCE, Stop date: 01/05/21 12:21:00 CDT ePHEDrine No Route: IV, Me moria (ANES) 9-20 Drug form: l 17:21: INJ, ONCE, Stop date: 01/05/21 12:21:00 CDT propofol No Route: IV, Mem oria (ANES) 10 9- Drug form: l mg 17:08: INJ, Start Yury 00 date: 01/05/21 12:08:00 CDT, Stop date: 01/05/21 13:08:00 CDT Lactated No Route: IV, Mem oria Ringers 9-20 Total l Injection 17:04: Volume: Perlita nn IV (ANES) 00 1,000, 1000 mL Start date: 01/05/21 12:04:00 CDT, Stop date: 01/05/21 13:04:00 CDT benzonatate Yes 100 mg = 1 Memoria 100 MG Oral 7-28 cap, PO, l Capsule 21:33: Q8H, PRN Rm n [Tessalon 00 cough, do Perles] not crush or chew, X 10 day, # 30 cap, 0 Refill(s), Pharmacy: [id number], 165.1, cm, 10/27/20 14:10:00 CDT, Height, 74.602, kg, 10/27/20 14:10:00 CDT, Weight Diclofenac 2020-0 Yes 4 gm = 1 Mem oria Sodium 0.01 7-12 appl, TOP, l MG/MG 19:36: BID, PRN [place] Topical Gel 00 Apply to [Voltaren] affected area, # 100 gm, 1 Refill(s), Pharmacy: [facility], 165.1, cm, 10/27/20 14:10:00 CDT, Height, 74.602, kg, 10/27/20 14:10:00 CDT, Weight Calcium 0 Yes 1 tab, PO, Kenji kiera 600+D oral 7-12 BID, 0 l tablet 19:16: Refill(s) Rm n 00 Hydrochloro 0 Yes 1 tab, PO, Memoria thiazide 25 5-12 Daily, # l MG / 15:31: 90 tab, 3 [place] Triamterene 00 Refill(s), 37.5 MG Pharmacy: Oral Tablet [facility], 166.37, cm, 08/19/20 13:58:00 CDT, Height, 75.17, kg, 08/19/20 13:58:00 CDT, Weight Atenolol 0 Yes 100 mg = 1 Mem oria 100 MG Oral 5-11 tab, PO, l Tablet 16:02: Daily, # Yury 00 90 tab, 3 Refill(s), Pharmacy: [facility], 166.37, cm, 08/19/20 13:58:00 CDT, Height, 75.17, kg, 08/19/20 13:58:00 CDT, Weight allopurinol 0 Yes 200 mg = 2 Memoria 100 mg oral 5-05 tab, PO, l tablet 18:13: Daily, # Yury 00 180 tab, 3 Refill(s), Pharmacy: [facility], 166.37, cm, 08/19/20 13:58:00 CDT, Height, 75.17, kg, 08/19/20 13:58:00 CDT, Weight allopurinol No 200 mg = 2 Memoria 100 mg oral 5-05 tab, PO, l tablet 16:58: Daily, # Yury 00 180 tab, 3 Refill(s), Pharmacy: [facility], 166.37, cm, 08/19/20 13:58:00 CDT, Height, 75.17, kg, 08/19/20 13:58:00 CDT, Weight allopurinol No 200 mg = 2 Memoria 100 mg oral 5-05 tab, PO, l tablet 12:32: Daily, # [place] 00 180 tab, 3 Refill(s), Pharmacy: [id number], 166.37, cm, 08/19/20 13:58:00 CDT, Height, 75.17, kg, 08/19/20 13:58:00 CDT, Weight Metronidazo Yes 500 mg = 1 Memoria le 500 MG 3-26 tab, PO, l Oral Tablet 16:23: TID, X 14 H erm [Flagyl] , # 42 tab, 0 Refill(s), Pharmacy: [id number], 167.64, cm, 07/11/20 10:52:00 CDT, Height, 76.136, kg, 07/11/20 10:52:00 CDT, Weight 24 HR Yes 1.5 gm = 4 Memori a mesalamine 9-25 cap, PO, l 375 MG 18:19: QAM, # 360 Perlita nn Extended 00 cap, 1 Release Refill(s), Capsule Pharmacy: [[facility]] [facility] 24 HR Yes 1.5 gm = 4 Memori a mesalamine 3-07 cap, PO, l 375 MG 17:03: QAM, # 360 Perlita nn Extended 22 cap, 1 Release Refill(s), Capsule Pharmacy: [[facility]] [facility] dicyclomine Yes 10 mg = 1 M emoria 10 mg oral 3-07 cap, PO, l capsule 17:02: QID-Before Herm te 00 Meals, as needed for abdominal pain, # 60 cap, 1 Refill(s), Pharmacy: [id number] 24 No 1.5 gm = 4 Memori a mesalamine 1-07 cap, PO, l 375 MG 15:27: QAM, # 360 Perlita nn Extended 00 cap, 0 Release Refill(s), [facility] 24 HR 2017-04 No 1.5 gm = 4 Memori a mesalamine 2-20 cap, PO, l 375 MG 20:09: QAM, # 360 Perlita nn Extended 00 cap, 1 Release Refill(s), [facility] HR 2017-04 No 1.5 gm = 4 Memori a mesalamine 2-20 cap, PO, l 375 MG 18:09: QAM, # 120 Perlita nn Extended 00 cap, 5 Release Refill(s), Capsule Pharmacy: [[facility]] [id number] mesalamine No 4.8 gm = 4 M emoria 1200 MG 9-04 tab, PO, l Enteric 22:17: Daily, # Rm n Coated 54 360 tab, 1 Tablet Refill(s), [Lialda] BILLIE, Pharmacy: [facility], Brand necessary mesalamine No 4.8 gm = 4 M emoria 1200 MG 8-23 tab, PO, l Enteric 21:42: Daily, # Rm n Coated 00 120 tab, 5 Tablet Refill(s), [Lialda] BILLIE, [id number], Brand necessary mesalamine No 4.8 gm = 4 M emoria 1200 MG 8-18 tab, PO, l Enteric 18:39: Daily, # Rm n Coated 00 224 tab, 0 Tablet Refill(s), [Lialda] Pharmacy: [facility][id number] mesalamine No Notes: Memor ia -18 (Same as: l 14:00: Delzicol) Yury 00 Omnipaque No Notes: Memori a 300 12-03 (Same l injectable 13:35: as:Omnipaq H ermann solution 00 ue 300). WASTE: F/P - Black; E - [employer] mesalamine No 4.8 gm, 4 Me moria 1200 MG 8-18 tab, l Enteric 00:00: Route: PO, Herm te Coated 00 Drug form: Tablet ECTAB, Daily, Dosing Weight 73.409, kg, Start date: 12/02/17 19:00:00 CDT, Duration: 30 day, Stop date: 01/01/18 9:00:00 CDT Aspirin 81 2018- No 81 mg, 1 Mem oria MG Chewable 8-17 tab, l Tablet 14:00: Route: [place] 00 CHEW, Drug form: CHEWTAB, Daily, Dosing Weight 73.409, kg, Start date: 12/02/17 9:00:00 CDT, Duration: 30 day, Stop date: 12/31/17 9:00:00 CDT Hydrochloro No Notes: Kenji kiera thiazide 25 8-17 (triamtere l MG / 14:00: ne-hydroch Y[place] Triamterene 00 lorothiazi 37.5 MG de 37.5-25 Oral Tablet mg TAB) (Same As: Maxzide-25 ) Atenolol No Notes: Memoria 100 MG Oral 8-17 (Same l Tablet 14:00: As:Tenormi Perlita nn 00 n) Allopurinol No Notes: Kenji kiera 8-17 (Same as: l 14:00: Zyloprim) Ceftriaxone No Notes: Kenji kiera 8-17 (Same As: l 01:00: Rocephin). Use with 100 mL NS and infuse over 30 min MEDICATION WASTE Product Size: 1000 mg Product Wasted: ___ mg Metronidazo No Notes: Kenji kiera le 8-17 (Same as: l 01:00: Flagyl) Avoid alcohol. Morphine No Notes: Memoria 8-16 (Same l 23:27: as:MORPhin e Sulfate) Lactated No 1,000 mL, Kenji kiera Ringers IV 8-16 Rate: 100 l 1,000 mL 23:16: ml/hr, Infuse over: 10 hr, Route: IV, Dosing Weight 73.409 kg, Total Volume: 1,000, Start date: 12/01/17 18:16:00 CDT, Duration: 30 day, Stop date: 12/31/17 18:15:00 CDT, 1.87, m2 Saline No Notes: Memoria Flush 0.9% 12-01 (Same as: l 23:16: BD Y[place] 00 Posiflush) Ondansetron No Notes: Kenji kiera 12-01 (Same as: l 23:16: Zofran) MEDICATION WASTE Product Size: 4 mg Product Wasted: ___ mg Acetaminoph No Notes: Do M emoria en 12-01 not exceed l 23:16: 4 gm/day. [place] 00 (Same as: Tylenol) Acetaminoph No Notes: Kenji kiera en 325 MG / 12-01 (Same as: l Hydrocodone 23:16: [facility] Perlita nn Bitartrate 00 325/5) Do 5 MG Oral not exceed Tablet 4gm/day of acetaminop hen. Metronidazo No 500 mg = 1 Memoria le 500 MG 7-27 tab, PO, l Oral Tablet 15:05: TID, X 14 H [place] [Flagyl] 31 day, # 42 tab, 0 Refill(s), Pharmacy: [email or web address] #[id number] Amoxicillin No 1 tab, PO, Memoria 500 MG / 7-27 Q8H, X 14 l Clavulanate 15:05: day, # 42 H ermann 125 MG Oral 09 tab, 0 Tablet Refill(s), Pharmacy: [facility] #[id number] Metronidazo Yes 500 mg = 1 Memoria le 500 MG 6-07 tab, PO, l Oral Tablet 14:49: TID, X 14 H ermann [Flagyl] 00 day, # 42 tab, 0 Refill(s), Pharmacy: [email or web address] #[id number] Atenolol Yes 100 mg = 1 Mem oria 100 MG Oral 3-20 tab, PO, l Tablet 13:46: Daily, # Y[place] 00 90 tab, 3 Refill(s), Pharmacy: [facility] Hydrochloro Yes 1 tab, PO, Memoria thiazide 25 3-20 Daily, # l MG / 13:46: 90 tab, 3 [place] Triamterene 00 Refill(s), 37.5 MG Pharmacy: Oral Tablet [facility] allopurinol 2018-0 Yes 100 mg = 1 Memoria 100 mg oral 3-20 tab, PO, l tablet 13:46: Daily, # Y[place] 00 90 tab, 3 Refill(s), Pharmacy: [facility] Hydrochloro 2018-0 No 1 tab, PO, Memoria thiazide 25 3-08 Daily, # l MG / 18:44: 90 tab, 3 [place] Triamterene 44 Refill(s), 37.5 MG Pharmacy: Oral Tablet [facility] Atenolol 2017- No 100 mg = 1 Mem oria 100 MG Oral 3-08 tab, PO, l Tablet 18:44: Daily, # Yury 35 90 tab, 3 Refill(s), Pharmacy: [facility] allopurinol 2017- No 100 mg = 1 Memoria 100 mg oral 3-08 tab, PO, l tablet 18:44: Daily, # Yury 30 90 tab, 3 Refill(s), Pharmacy: [facility] dicyclomine No 10 mg = 1 M emoria 10 mg oral 2-15 cap, PO, l capsule 17:19: QID-Before Herm te 00 Meals, as needed for abdominal pain, # 60 cap, 1 Refill(s), Pharmacy: [facility] #[id number] Metronidazo 2017-0 No 500 mg = 1 Memoria le 500 MG 2-15 tab, PO, l Oral Tablet 17:19: Q8H, X 7 He rmann 00 day, # 21 tab, 0 Refill(s), Pharmacy: [facility]029 Amoxicillin 2018-0 No 1 tab, PO, Memoria 500 MG / 2-15 Q8H, X 7 l Clavulanate 17:19: day, # 21 H ermann 125 MG Oral 00 tab, 0 Tablet Refill(s), Pharmacy: [facility] #029 benzonatate 2017-0 No 100 mg = 1 Memoria 100 MG Oral 1-11 cap, PO, l Capsule 20:00: TID, X 14 Perlita nn [Tessalon 00 day, # 42 Perles] cap, 0 Refill(s), Pharmacy: [facility] #029 Sulfamethox 2018-0 No 1 tab, PO, Memoria azole 800 1-11 BID, X 10 l MG / 20:00: day, # 20 [place] Trimethopri 00 tab, 0 m 160 MG Refill(s), Oral Tablet Pharmacy: [facility] Aspirin 81 Yes 81 mg = 1 Me moria MG Chewable -11 tab, CHEW, l Tablet 19:39: Daily, 0 [place] 00 Refill(s) Vitamin D2 Yes 600mg tab, M emoria -11 PO, Daily, l 19:39: 0 [place] 00 Refill(s) clobetasol 2015-04 Yes See Memoria topical 0-29 Instructio l 0.05% cream 08:45: ns, # 60 He rmann 39 gm, Refill(s) 2, APPLY TO AFFECTED AREAS TWICE DAILY, Pharmacy: [facility] Immunizations Ordered Immunization Name Filled Date Status Comments Source Immunization Name [id number] Unknown Completed Memor ial bivalentboostMODERNA Herm te pneumococcal 23-valent Unknown Completed [facility] morial vaccine<sup>1</sup> Perlita nn influenza virus vaccine, Unknown Completed [facility] inactivated<sup>4</sup> H ermann [id number] Unknown Completed [facility] 3vaxMODERNA [place] influenza virus vaccine, Unknown Completed [facility] inactivated Yury [id number] Unknown Completed [facility] 3vaxMODERNA Yury [id number] Unknown Completed [facility] 3vaxMODERNA Yury [id number] Unknown Completed [facility] 3vaxMODERNA [place] influenza virus vaccine, Unknown Completed [facility] inactivated [place] influenza virus vaccine, Unknown Completed [facility] inactivated [place] influenza virus vaccine, Unknown Completed [facility] inactivated [place] influenza virus vaccine, Unknown Completed [facility] inactivated [place] influenza virus vaccine, Unknown Completed [facility] inactivated [place] influenza virus vaccine, Unknown Completed [facility] inactivated Yury pneumococcal 13-valent Unknown Completed [facility] morial vaccine [place] influenza virus vaccine, Unknown Completed [facility] inactivated<sup>1</sup> H ermann influenza virus vaccine, Unknown Completed [facility] inactivated<sup>5</sup> H ermann pneumococcal 23-valent Unknown Completed [facility] morial vaccine<sup>2</sup> Perlita nn pneumococcal 23-valent Unknown Completed [facility] morial vaccine<sup>2, 3</sup> He rmann Vital Signs Vital Name Observation Time Observation Value Comments Source Height 2022-08-09 18:53:00 5 [ft_i] [facility] [place] Weight 2022-08-09 18:53:00 [facility] BMI Calculated 2022-08-09 18:53:00 Memori al [place] Heart Rate 2022-08-09 18:53:00 [facility] Systolic (mm Hg) 2022-08-09 18:53:00 Kenji rial Y[place] Diastolic (mm Hg) 2022-08-09 18:53:00 Mem orial [place] Systolic (mm Hg) 2022-04-21 17:06:00 Kenji rial [place] Diastolic (mm Hg) 2022-04-21 17:06:00 Mem orial [place] Height 2022-04-21 17:06:00 5 [ft_i] [facility] Weight 2022-04-21 17:06:00 [facility] BMI Calculated 2022-04-21 17:06:00 Memori al [place] Height 2022-02-02 15:32:00 5 [ft_i] [facility] [place] Weight 2022-02-02 15:32:00 [facility] BMI Calculated 2022-02-02 15:32:00 Memori al [place] Heart Rate 2022-02-02 15:32:00 [facility] [place] Systolic (mm Hg) 2022-02-02 15:32:00 Kenji rial Y[place] Diastolic (mm Hg) 2022-02-02 15:32:00 Mem orial [place] Height 2021-09-21 19:43:00 165.1 cm [facility] Weight 2021-09-21 19:43:00 [facility] BMI Calculated 2021-09-21 19:43:00 Memori al [place] Temperature Oral (F) 2021-09-21 19:43:00 98.2 F [facility] Heart Rate 2021-09-21 19:43:00 [facility] [place] Systolic (mm Hg) 2021-09-21 19:43:00 Kenji rial Y[place] Diastolic (mm Hg) 2021-09-21 19:43:00 Mem orial [place] Temperature Oral (F) 2021-08-24 18:10:00 98.1 F [facility] [place] Heart Rate 2021-08-24 18:10:00 [facility] [place] Systolic (mm Hg) 2021-08-24 18:10:00 Kenji rial [place] Diastolic (mm Hg) 2021-08-24 18:10:00 Mem orial [place] Height 2021-08-24 18:10:00 165.1 cm [facility] Weight 2021-08-24 18:10:00 [facility] BMI Calculated 2021-08-24 18:10:00 Memori al [place] Temperature Oral (F) 2021-04-09 19:25:00 99.3 F [facility] Heart Rate 2021-04-09 19:25:00 [facility] [place] Systolic (mm Hg) 2021-04-09 19:25:00 Kenji rial [place] Diastolic (mm Hg) 2021-04-09 19:25:00 Mem orial [place] Height 2021-04-09 19:25:00 165.1 cm [facility] [place] Weight 2021-04-09 19:25:00 [facility] [place] BMI Calculated 2021-04-09 19:25:00 Memori al [place] Temperature Oral (F) 2021-02-23 19:16:00 97.5 F [facility] [place] Heart Rate 2021-02-23 19:16:00 [facility] [place] Systolic (mm Hg) 2021-02-23 19:16:00 Kenji rial Y[place] Diastolic (mm Hg) 2021-02-23 19:16:00 Mem orial [place] Height 2021-02-23 19:16:00 165.1 cm [facility] [place] Weight 2021-02-23 19:16:00 [facility] [place] BMI Calculated 2021-02-23 19:16:00 Memori al [place] Height 2020-12-31 16:31:00 167.64 cm [facility] [place] Weight 2020-12-31 16:31:00 [facility] [place] BMI Calculated 2020-12-31 16:31:00 Memori al [place] Systolic (mm Hg) 2020-10-27 19:10:00 Kenji rial [place] Diastolic (mm Hg) 2020-10-27 19:10:00 Mem orial [place] Heart Rate 2020-10-27 19:10:00 [facility] [place] Temperature Oral (F) 2020-10-27 19:10:00 97.3 F [facility] [place] Height 2020-10-27 19:10:00 165.1 cm [facility] [place] Weight 2020-10-27 19:10:00 [facility] [place] BMI Calculated 2020-10-27 19:10:00 Memori al [place] Height 2020-08-19 18:58:00 166.37 cm [facility] [place] Weight 2020-08-19 18:58:00 [facility] [place] BMI Calculated 2020-08-19 18:58:00 Memori al [place] Systolic (mm Hg) 2020-08-19 18:58:00 Kenji rial [place] Diastolic (mm Hg) 2020-08-19 18:58:00 Mem orial [place] Heart Rate 2020-08-19 18:58:00 [facility] [place] Temperature Oral (F) 2020-08-19 18:58:00 98.9 F [facility] [place] Systolic (mm Hg) 2020-07-11 15:52:00 Kenji rial [place] Diastolic (mm Hg) 2020-07-11 15:52:00 Mem orial [place] Heart Rate 2020-07-11 15:52:00 [facility] [place] Height 2020-07-11 15:52:00 167.64 cm [facility] [place] Weight 2020-07-11 15:52:00 [facility] [place] BMI Calculated 2020-07-11 15:52:00 Memori al [place] Height 2019-01-10 16:01:00 167.64 cm [facility] [place] Weight 2019-01-10 16:01:00 [facility] [place] BMI Calculated 2019-01-10 16:01:00 Memori al [place] Weight 2018-06-22 16:13:00 [facility] BMI Calculated 2018-06-22 16:13:00 Memori al [place] Height 2018-06-22 16:13:00 167.64 cm [facility] [place] Heart Rate 2018-06-22 16:13:00 [facility] [place] Systolic (mm Hg) 2018-06-22 16:13:00 Kenji rial [place] Diastolic (mm Hg) 2018-06-22 16:13:00 Mem orial [place] Weight 2018-02-02 15:48:00 [facility] [place] Temperature Oral (F) 2018-02-02 15:48:00 98.5 F [facility] Respitory Rate 2018-02-02 15:48:00 Memori al [place] Systolic (mm Hg) 2018-02-02 15:48:00 Kenji rial [place] Diastolic (mm Hg) 2018-02-02 15:48:00 Mem orial [place] Heart Rate 2018-02-02 15:48:00 [facility] [place] Height 2017-12-20 19:07:00 167.64 cm [facility] [place] BMI Calculated 2017-12-20 19:07:00 Memori al [place] Weight 2017-12-20 19:07:00 [facility] [place] Systolic (mm Hg) 2017-12-20 19:07:00 Kenji rial [place] Diastolic (mm Hg) 2017-12-20 19:07:00 Mem orial [place] Systolic (mm Hg) 2017-12-03 16:10:00 Kenji rial [place] Diastolic (mm Hg) 2017-12-03 16:10:00 Mem orial [place] Heart Rate 2017-12-03 16:10:00 [facility] [place] Respitory Rate 2017-12-03 16:10:00 Memori al [place] Temperature Oral (F) 2017-12-03 16:10:00 98.2 F [facility] [place] Heart Rate 2017-12-03 12:59:00 [facility] [place] Temperature Oral (F) 2017-12-03 12:59:00 98.1 F [facility] [place] Respitory Rate 2017-12-03 12:59:00 Memori al [place] Systolic (mm Hg) 2017-12-03 12:59:00 Kenji rial [place] Diastolic (mm Hg) 2017-12-03 12:59:00 Mem orial [place] Systolic (mm Hg) 2017-12-03 08:25:00 Kenji rial [place] Diastolic (mm Hg) 2017-12-03 08:25:00 Mem orial [place] Respitory Rate 2017-12-03 08:25:00 Memori al [place] Heart Rate 2017-12-03 08:25:00 [facility] [place] Temperature Oral (F) 2017-12-03 08:25:00 98.1 F [facility] [place] Height 2017-12-01 21:07:00 167.64 cm [facility] [place] Weight 2017-12-01 21:07:00 [facility] [place] BMI Calculated 2017-12-01 21:07:00 Memori al [place] BMI Calculated 2017-12-01 18:43:00 Memori al [place] Height 2017-12-01 18:43:00 167.64 cm [facility] [place] Weight 2017-12-01 18:43:00 [facility] [place] Systolic (mm Hg) 2017-12-01 18:43:00 Kenji rial [place] Diastolic (mm Hg) 2017-12-01 18:43:00 Mem orial [place] Weight 2017-11-11 14:02:00 [facility] [place] Heart Rate 2017-11-11 14:02:00 [facility] [place] Temperature Oral (F) 2017-11-11 14:02:00 98 F [facility] [place] Respitory Rate 2017-11-11 14:02:00 Memori al [place] Systolic (mm Hg) 2017-11-11 14:02:00 Kenji rial [place] Diastolic (mm Hg) 2017-11-11 14:02:00 Mem orial [place] Systolic (mm Hg) 2017-09-22 14:33:00 Kenji rial [place] Diastolic (mm Hg) 2017-09-22 14:33:00 Mem orial [place] Weight 2017-08-02 14:23:00 [facility] [place] Temperature Oral (F) 2017-08-02 14:23:00 98.5 F [facility] [place] Respitory Rate 2017-08-02 14:23:00 Memori al [place] Heart Rate 2017-08-02 14:23:00 [facility] [place] Systolic (mm Hg) 2017-08-02 14:23:00 Kenji rial [place] Diastolic (mm Hg) 2017-08-02 14:23:00 Mem orial [place] BMI Calculated 2017-06-16 17:06:00 Memori al [place] Height 2017-06-16 17:06:00 167.64 cm [facility] [place] Weight 2017-06-16 17:06:00 [facility] [place] Heart Rate 2017-06-16 17:06:00 [facility] [place] Systolic (mm Hg) 2017-06-16 17:06:00 Kenji rial [place] Diastolic (mm Hg) 2017-06-16 17:06:00 Mem orial [place] Height 2017-06-02 17:02:00 167.64 cm [facility] BMI Calculated 2017-06-02 17:02:00 Raoulsarah beth al Y[place] Weight 2017-06-02 17:02:00 [facility] [place] Systolic (mm Hg) 2017-06-02 17:02:00 Kenji rial [place] Diastolic (mm Hg) 2017-06-02 17:02:00 Mem orial [place] Heart Rate 2017-06-02 17:02:00 [facility] Weight 2017-04-28 19:35:00 [facility] [place] Systolic (mm Hg) 2017-04-28 19:35:00 Kenji rial [place] Diastolic (mm Hg) 2017-04-28 19:35:00 Mem orial [place] Temperature Oral (F) 2017-04-28 19:35:00 98.2 F [facility] Heart Rate 2017-04-28 19:35:00 [facility] Procedures Procedure Date / Time Performed Performing Clinician [facility] johnie Colonoscopy - repeat 2020-12-17 00:00:00 Daly Cotton 01/09<sup>1</sup> Mammogram - screening 2017-01-21 05:00:00 Rg Coon Colonoscopy 2016-03-16 06:00:00 [facility] Excision of cyst of [facility] breast Cataract surgery [facility] n Bilateral tubal ligation Daly Cotton Bone density [facility] scan<sup>2</sup> Encounters Start End Encounter Admission Attending Care Care Encounter Source Date/Time Date/Time Type Type Clinicians Facility Department ID 2023-02-07 2023-02-07 Outpatient MAJOR GONSALVES [id number] Memoria 13:20:00 13:20:00 60 matt Cotton 2023-02-03 2023-02-03 Outpatient [id number] PRIV PRIV [id number] [facility] 00:00:00 00:00:00 diyala_S [id number] Medic al 2023-01-31 2023-01-31 Outpatient KATELYNIE KATELYNIE [id number] Memoria 08:15:00 08:15:00 59 l Yury 2022-08-09 2022-08-10 Outpatient MAJOR [id number] Memoria 18:40:00 04:59:59 Internal 57 matt Silva 2022-08-09 2022-08-09 Outpatient Doug [facility] [id number] 13:40:00 23:59:59 Luis Carlos 57 [place] 2022-08-09 2022-08-09 Outpatient MHIE MHIE [id number] Memoria 13:40:00 13:40:00 57 l Yury 2022-07-27 2022-07-27 Outpatient MHIE MHIE [id number] Memoria 09:00:00 09:00:00 56 l Yury 2022-05-05 2022-05-06 Outpt Diag MHIE [facility] [id number] Memoria 18:18:00 05:59:00 Services Outpatient 02 l Imaging Y[place] 2022-05-05 2022-05-05 Outpatient Vero, 29 [id number] 12:18:00 23:59:00 Nadim Luis 02 2022-04-21 2022-04-22 Outpatient MHIE [facility] [id number] Memoria 17:00:00 05:59:59 Gastroenter 59 l kieran [place] 2022-04-21 2022-04-21 Outpatient Vero MG [facility] [id number] 11:00:00 23:59:59 Nadim Luis 59 2022-04-21 2022-04-21 Outpatient MHIE IE [id number] Memoria 11:00:00 11:00:00 57 l Yury 2022-04-16 2022-04-18 Phone MHIE [facility] [id number] Memoria 15:22:08 05:59:59 Message Gastroenter 22 l kieran Vannessa William te [facility] 2022-04-16 2022-04-17 Outpatient MG MG [id number] 09:22:08 23:59:59 22 2022-02-17 2022-02-17 Outpatient MHIE IE [id number] Memoria 08:15:00 08:15:00 53 matt Cotton 2022-02-02 2022-02-03 Outpatient nullFlavo [facility] [id number] Memoria 15:00:00 04:59:59 r Internal 54 l Jc Silva 2022-02-02 2022-02-02 Outpatient Doug [facility] [id number] 10:00:00 23:59:59 Luis Carlos 52 [place] 2022-02-02 2022-02-02 Outpatient MHIE MHIE [id number] Memoria 10:00:00 10:00:00 54 matt Cotton 2021-09-21 2021-09-23 Phone nullFlavo MG [id number] Memoria 20:11:28 04:59:59 Message r Internal 21 l [facility] Yury Silva 2021-09-21 2021-09-22 Outpatient MHMG MG [id number] 15:11:28 23:59:59 21 2021-09-21 2021-09-22 [place] [id number] Memoria 19:40:00 04:59:59 r Internal 56 l [facility] Yury Silva 2021-09-21 2021-09-21 Outpatient Doug [facility] [id number] 14:40:00 23:59:59 Luis Carlos 54 [place] 2021-09-21 2021-09-21 Outpatient IE IE [id number] Memoria 14:40:00 14:40:00 56 matt Cotton 2021-08-31 2021-08-31 Ambulatory nullFlavo [facility] [id number] Memoria 19:20:00 19:20:00 Pre-Reg r Internal 53 l [facility] Yury Silva 2021-08-31 2021-08-31 Outpatient IE IE [id number] Memoria 14:20:00 14:20:00 53 matt Yury 2021-08-31 2021-08-31 Outpatient Doug [facility] [id number] 14:20:00 14:20:00 Luis Carlos 51 [place] 2021-08-24 2021-08-25 [place] [id number] Memoria 18:00:00 04:59:59 r Internal 50 l [facility] Yury Silva 2021-08-24 2021-08-24 Outpatient Doug [facility] [id number] 13:00:00 23:59:59 Luis Cralos 48 [place] 2021-08-24 2021-08-24 Outpatient MHIE MHIE [id number] Memoria 13:00:00 13:00:00 50 matt Cotton 2021-08-172021-08-17 Outpatient MHIE MHIE [id number] Memoria 09:30:00 09:30:00 49 l Yury 2021-05-12 2021-05-13 Outpatient nullFlavo [facility] [id number] Memoria 18:34:00 05:59:00 bakari Cotton 27 matt Bhat suman 2021-05-12 2021-05-12 [facility] [id number] 12:34:00 23:59:00 Luis Carlos Shubham [place] 2021-05-12 2021-05-12 [facility] MED [id number] [facility] 12:34:00 23:59:00 LUIS CARLOS 2021-04-28 2021-04-28 [facility] [id number] 12:00:00 12:00:00 Luis Carlos Shubham [place] 2021-04-15 2021-04-17 Phone nullFlavo MG [id number] Memoria 19:51:50 05:59:59 Message r Internal 20 l Jc Thurstonberg 2021-04-15 2021-04-16 Outpatient MHMG MH[facility] [id number] 13:51:50 23:59:59 2021-04-09 2021-04-10 [place] [id number] Memoria 19:20:00 05:59:59 r Internal 52 l Jc Silva 2021-04-09 2021-04-09 [facility] [id number] 13:20:00 23:59:59 Luis Carlos [place] 2021-04-09 2021-04-09 Outpatient MHIE MHIE [id number] Memoria 13:20:00 13:20:00 50 matt Cotton 2021-03-18 2021-03-20 Phone nullFlavo [facility]MG [id number] Memoria 19:09:30 05:59:59 Message r Internal 19 l Medicine Yury Silva 2021-03-18 2021-03-19 Outpatient MHMG MHMG [id number] 13:09:30 23:59:59 19 2021-02-23 2021-02-24 Outpatient nullFlavo [facility]MG [id number] Memoria 19:20:00 05:59:59 r Internal 46 l Jc Silva 2021-02-23 2021-02-23 Outpatient Doug [facility] [id number] 13:20:00 23:59:59 Luis Carlos [place] 2021-02-23 2021-02-23 Outpatient MAJOR GONSALVES [id number] Memoria 13:20:00 13:20:00 46 matt Cotton 2021-02-16 2021-02-16 Outpatient MAJOR GONSALVES [id number] Memoria 07:15:00 07:15:00 47 matt Cotton 2021-01-05 2021-01-05 Bedded nullFlavo [facility] [id number] Memoria 15:14:00 18:06:00 Outpatient bakari Cotton 26 l Vannessa Bhat 2021-01-05 2021-01-05 Outpatient Vero, MHSL MHSL [id number] 10:14:00 13:06:00 Nadim Luis 24 2021-01-05 2021-01-05 Outpatient VERO, MHFB [facility]FB [id number] 10:14:00 13:06:00 NADIM 2021-01-05 2021-01-05 Outpatient Vero, MHSL MHSL [id number] 12:30:00 12:30:00 Nadim Luis 24 2020-12-23 2020-12-25 Phone nullFlavo [facility] [id number] Memoria 20:09:51 04:59:59 Message r Internal 18 l Jc Silva 2020-12-23 2020-12-24 Outpatient [facility] [id number] 15:09:51 23:59:59 18 2020-12-17 2020-12-19 Phone nullFlavo MG [id number] Memoria 19:07:41 04:59:59 Message r Gastroenter 17 l ologkrystal Vannessa tiwari [facility] 2020-12-17 2020-12-18 Outpatient [facility] [id number] 14:07:41 23:59:59 17 2020-11-12 2020-11-14 Phone nullFlavo MG [id number] Memoria 19:37:52 04:59:59 Message r Internal 16 l Medicine Yury [place] 2020-11-12 2020-11-13 Outpatient MHMG MH[facility] [id number] 14:37:52 23:59:59 16 2020-10-27 2020-10-28 Between nullFlavo [facility]MG [id number] Memoria 21:46:34 21:46:34 Visit r Internal 25 l [facility] Yury Silva 2020-10-27 2020-10-28 Outpatient MHMG MH[facility] [id number] 16:46:34 16:46:34 25 2020-10-27 2020-10-28 Outpatient nullFlavo [facility] [id number] Memoria 19:45:00 04:59:59 r Radiology 49 matt Abdalla jr 2020-10-27 2020-10-28 Outpatient nullFlavo [facility] [id number] Memoria 19:20:00 04:59:59 r Internal 48 l [facility] Yury Silva 2020-10-27 2020-10-27 Outpatient VISIT, MHMG MHMG [id number] 14:45:00 23:59:59 NURSE STRB 49 JAYLA 2020-10-27 2020-10-27 Outpatient [place], [facility] [id number] 14:20:00 23:59:59 Luis Carlos [place] 2020-10-27 2020-10-27 Outpatient MHIE MHIE [id number] Memoria 14:45:00 14:45:00 49 matt Cotton 2020-10-27 2020-10-27 Outpatient MHIE MHIE [id number] Memoria 14:20:00 14:20:00 46 matt Cotton 2020-08-27 2020-08-29 Phone nullFlavo [facility]MG [id number] Memoria 15:22:08 04:59:59 Message r Internal 15 l [facility] [place] Shira 2020-08-27 2020-08-28 Outpatient MHMG MHMG [id number] 10:22:08 23:59:59 15 2020-08-26 2020-08-28 Phone nullFlavo [facility]MG [id number] Memoria 15:47:49 04:59:59 Message r Internal 14 l [facility] Y[place] Silva 2020-08-26 2020-08-27 Outpatient MHMG MHMG [id number] 10:47:49 23:59:59 14 2020-08-20 2020-08-21 Between nullFlavo [facility] [id number] Memoria 12:32:13 12:32:13 Visit r Internal 22 l [facility] [place] 2020-08-20 2020-08-21 Outpatient [facility] [id number] 07:32:13 07:32:13 22 2020-08-19 2020-08-20 Outpatient nullFlavo [facility] [id number] Memoria 18:30:00 04:59:59 r Internal 45 l Medicine Y[place] 2020-08-19 2020-08-19 Outpatient Doug, [facility] [id number] 13:30:00 23:59:59 Luis Carlos 43 [place] 2020-08-19 2020-08-19 Outpatient KATELYNIE MAJOR [id number] Memoria 13:30:00 13:30:00 45 matt [place] 2020-08-04 2020-08-05 Outpt Diag nullFlavo [facility] [id number] Memoria 16:47:00 04:59:00 Services r Outpatient [address] [facility] 2020-08-04 2020-08-04 Outpatient Vero, MH29 [facility] [id number] 11:47:00 23:59:00 Nadim Luis 01 2020-07-11 2020-07-12 Outpatient nullFlavo [facility] [id number] Memoria 15:40:00 04:59:59 r Gastroenter 42 l ology [facility] 2020-07-11 2020-07-11 Outpatient Vero, MG [facility] [id number] 10:40:00 23:59:59 Nadim Luis 42 2020-07-11 2020-07-11 Outpatient KATELYNIE KATELYNIE [id number] Memoria 10:40:00 10:40:00 42 l Yury 2019-07-11 2019-07-11 Ambulatory nullFlavo [facility] [id number] Memoria 15:20:00 15:20:00 Pre-Reg r Gastroenter 41 l ology Yury Cameron 2019-07-11 2019-07-11 Outpatient MHIE KATELYNIE [id number] Memoria 10:20:00 10:20:00 41 matt Yury 2019-07-11 2019-07-11 Outpatient KATELYN PhamMG MG [id number] 10:20:00 10:20:00 Nadim Luis 41 2019-01-30 2019-02-01 Phone nullFlavo MG [id number] Memoria 20:11:47 04:59:59 Message r Gastroenter 13 l ologMarko Johnson 2019-01-30 2019-01-31 Outpatient [facility] MG [id number] 15:11:47 23:59:59 13 2019-01-10 2019-01-11 [place] [id number] Memoria 15:30:00 04:59:59 r Gastroenter 42 l ology Yury [place] 2019-01-10 2019-01-10 Outpatient Vero, KATELYNMG MG [id number] 10:30:00 23:59:59 Nadim Luis 42 2019-01-10 2019-01-10 Outpatient MHIE KATELYNIE [id number] Memoria 10:30:00 10:30:00 42 matt Yury 2018-08-03 2018-08-03 Ambulatory nullFlavo MG Family 3 [id number] Memoria 15:30:00 15:30:00 Pre-Reg r Medicine 38 matt [place] Yury 2018-08-03 2018-08-03 Outpatient MHIE IE [id number] Memoria 10:30:00 10:30:00 38 matt Yury 2018-08-03 2018-08-03 [facility] [id number] 10:30:00 10:30:00 Charli P 38 2018-07-27 2018-07-27 [place] [id number] Memoria 13:10:00 13:10:00 Pre-Reg r Internal 39 l Medicine Yury Vera 2018-07-27 2018-07-27 Outpatient MHIE MHIE [id number] Memoria 08:10:00 08:10:00 39 matt Cotton 2018-07-27 2018-07-27 Outpatient MHMG MG [id number] 08:10:00 08:10:00 39 2018-06-22 2018-06-23 [place] [id number] Memoria 16:30:00 05:59:59 r Gastroenter 37 l ology Yury [place] 2018-06-22 2018-06-22 [place] [id number] 10:30:00 23:59:59 Edd Garza 37 2018-06-21 2018-06-22 Between nullFlavo MG [id number] Memoria 23:58:23 23:58:23 Visit r Gastroenter 20 l ology Yury Jody 2018-06-21 2018-06-22 Outpatient MG MG [id number] 17:58:23 17:58:23 20 2018-06-22 2018-06-22 Outpatient MHIE MHIE [id number] Memoria 10:30:00 10:30:00 37 matt Cotton 2018-06-08 2018-06-08 [place] [id number] Memoria 20:45:00 20:45:00 Pre-Reg r Gastroenter 41 l ologkrystal Yury Silva 2018-06-08 2018-06-08 Outpatient MHIE IE [id number] Memoria 14:45:00 14:45:00 41 matt [place] 2018-06-08 2018-06-08 [place] [id number] 14:45:00 14:45:00 Edd Garza 41 2018-04-24 2018-04-26 Phone nullFlavo MG [id number] Memoria 15:27:00 05:59:59 Message r Gastroenter 12 l ologkrystal Sugar [facility] 2018-04-24 2018-04-25 Outpatient MG MG [id number] 09:27:00 23:59:59 12 2018-04-25 2018-04-25 [place] [id number] Memoria 20:30:00 20:30:00 Pre-Reg r Gastroenter 40 l danitaogkrystal [place] Silva 2018-04-25 2018-04-25 Outpatient MHIE MHIE [id number] Memoria 14:30:00 14:30:00 40 matt Cotton 2018-04-25 2018-04-25 [place] [id number] 14:30:00 14:30:00 Edd Garza 40 2018-04-06 2018-04-08 Phone nullFlavo MHMG [id number] Memoria 20:08:00 05:59:59 Message r Gastroenter 11 l kieran Vera 2018-04-06 2018-04-08 Phone nullFlavo [facility] [id number] Memoria 19:58:00 05:59:59 Message r Gastroenter 10 l kieran Silva 2018-04-06 2018-04-08 Phone nullFlavo MHMG [id number] Memoria 18:08:00 05:59:59 Message r Gastroenter 09 l kieran Vera 2018-04-06 2018-04-08 Phone nullFlavo MHMG [id number] Memoria 15:18:00 05:59:59 Message r Gastroenter 08 matt Vera 2018-04-06 2018-04-07 Outpatient MHMG MHMG [id number] 14:08:00 23:59:59 11 2018-04-06 2018-04-07 Outpatient MHMG MHMG [id number] 13:58:00 23:59:59 10 2018-04-06 2018-04-07 Outpatient MHMG MHMG [id number] 12:08:00 23:59:59 09 2018-04-06 2018-04-07 Outpatient MHMG MHMG [id number] 09:18:00 23:59:59 08 2018-02-02 2018-02-03 Outpatient nullFlavo [facility] Family 3 [id number] Memoria 15:30:00 04:59:59 r Medicine 32 matt Vera Yury 2018-02-02 2018-02-02 Outpatient Bebeto MG [facility] [id number] 10:30:00 23:59:59 Charli Martinez 32 2018-02-02 2018-02-02 Outpatient MHIE MHIE [id number] Memoria 10:30:00 10:30:00 32 matt Yury 2018-01-25 2018-01-25 Ambulatory nullFlavo [facility] [employer] MA[employer]GER 3 [id number] Memoria 15:30:00 15:30:00 Pre-Reg r [place] 23 matt Yury 2018-01-25 2018-01-25 Ambulatory nullFlavo [facility] [id number] Memoria 15:00:00 15:00:00 Pre-Reg r Radiology 22 matt Vera Yury 2018-01-25 2018-01-25 Outpatient MHIE IE [id number] Memoria 10:30:00 10:30:00 22 matt Yury 2018-01-25 2018-01-25 Outpatient Beatriz MG MG [id number] 10:30:00 10:30:00 , 23 Lino Cummings 2018-01-25 2018-01-25 Outpatient VISIT, MG MG [id number] 10:00:00 10:00:00 NURSE STWC 22 MAMMO 2017-12-20 2017-12-21 [place] [id number] Memoria 19:00:00 04:59:59 r Gastroenter 36 l kieran Silva 2017-12-20 2017-12-20 Outpatient Jun, [facility] [id number] 14:00:00 23:59:59 Edd Garza 36 2017-12-20 2017-12-20 Outpatient MHIE IE [id number] Memoria 14:00:00 14:00:00 36 matt Cotton 2017-12-08 2017-12-10 Phone nullFlavo MG [id number] Memoria 21:42:00 04:59:59 Message r Gastroenter 07 l asmitakrystal Yury Vera 2017-12-08 2017-12-09 Outpatient MG MG [id number] 16:42:00 23:59:59 07 2017-12-06 2017-12-08 Phone nullFlavo MG [id number] Memoria 15:07:00 04:59:59 Message r Gastroenter 06 l danitasilveriokrystal Yury Vera 2017-12-06 2017-12-07 Outpatient MG MG [id number] 10:07:00 23:59:59 06 2017-12-01 2017-12-03 Inpatient nullFlavo [facility] [id number] Memoria 20:48:00 21:47:00 bakari Cotton 04 l Vannessa will 2017-12-01 2017-12-03 Outpatient KATELYN JaySL MHSL [id number] 15:48:00 16:47:00 Noha 04 2017-12-01 2017-12-02 [place] [id number] Memoria 18:45:00 04:59:59 r Gastroenter 35 matt Silva 2017-12-01 2017-12-01 Outpatient Jun MHMG MHMG [id number] 13:45:00 23:59:59 Edderickson Muñozn 35 2017-12-01 2017-12-01 Outpatient MHIE MHIE [id number] Memoria 13:45:00 13:45:00 35 matt Yury 2017-11-11 2017-11-12 Outpatient nullFlavo [facility] Family 3 [id number] Memoria 14:00:00 04:59:59 r Medicine 34 matt Cotton 2017-11-11 2017-11-11 Outpatient Bebeto, MG [facility] [id number] 09:00:00 23:59:59 Charli P 34 2017-11-11 2017-11-11 Outpatient MHIE MHIE [id number] Memoria 09:00:00 09:00:00 34 matt Yury 2017-09-22 2017-09-23 Outpatient nullFlavo [facility] Family 3 [id number] Memoria 14:40:00 04:59:59 r Medicine 33 matt Cotton 2017-09-21 2017-09-23 Phone nullFlavo [facility]MG [id number] Memoria 20:36:00 04:59:59 Message r Gastroenter 05 matt Silva 2017-09-22 2017-09-22 Outpatient Bebeto, MG [facility]MG [id number] 09:40:00 23:59:59 Charli P 33 2017-09-21 2017-09-22 Outpatient MHMG MHMG [id number] 15:36:00 23:59:59 05 2017-09-22 2017-09-22 Outpatient MHIE MHIE [id number] Memoria 09:40:00 09:40:00 33 matt Yury 2017-08-02 2017-08-03 Outpatient nullFlavo [facility] Family 3 [id number] Memoria 14:30:00 04:59:59 r Medicine 25 matt Williamann 2017-08-02 2017-08-02 Outpatient Bebeto, MG [facility] [id number] 09:30:00 23:59:59 Charli P 25 2017-08-02 2017-08-02 Outpatient Bebeto, MG [facility] [id number] 09:30:00 23:59:59 Charli Martinez 25 2017-08-02 2017-08-02 Outpatient MHIE MHIE [id number] Memoria 09:30:00 09:30:00 25 matt Cotton 2017-07-05 2017-07-07 Phone nullFlavo MG Family [id number] Memoria 13:29:00 04:59:59 Message r Medicine 04 matt Cotton 2017-07-05 2017-07-06 Outpatient MHMG MG [id number] 08:29:00 23:59:59 04 2017-06-25 2017-06-26 Outpt Diag nullFlavo [facility] [id number] Memoria 16:29:00 05:59:00 Services r Outpatient 00 matt Johnson 2017-06-25 2017-06-25 Outpatient KATELYN [address] [place] [address] [id number] 10:29:00 23:59:00 Edd Muñozn 00 2017-06-23 2017-06-25 Phone nullFlavo MG Family [id number] Memoria 16:17:00 05:59:59 Message r Medicine 03 matt Cotton 2017-06-23 2017-06-24 Outpatient MHMG MG [id number] 10:17:00 23:59:59 03 2017-06-23 2017-06-24 Outpatient MHMG MHMG [id number] 10:17:00 23:59:59 03 2017-06-16 2017-06-17 [place] [id number] Memoria 17:15:00 05:59:59 r Gastroenter 31 l kieran Vera 2017-06-16 2017-06-16 [place] [id number] 11:15:00 23:59:59 Edderickson Muñozn 31 2017-06-16 2017-06-16 Outpatient MHIE MHIE [id number] Memoria 11:15:00 11:15:00 31 matt Cotton 2017-06-02 2017-06-03 [place] [id number] Memoria 17:15:00 05:59:59 r Gastroenter 30 l kieran Vera 2017-06-02 2017-06-02 [place] [id number] 11:15:00 23:59:59 Edd Garza 30 2017-06-02 2017-06-02 Outpatient MHIE MHIE [id number] Memoria 11:15:00 11:15:00 30 matt Yuyr 2017-05-04 2017-05-04 Ambulatory nullFlavo [facility] [id number] Memoria 17:30:00 17:30:00 Pre-Reg r Gastroenter 29 matt alcaraz Yury Silva 2017-05-04 2017-05-04 Outpatient MHIE MHIE [id number] Memoria 11:30:00 11:30:00 29 matt Yury 2017-05-04 2017-05-04 Outpatient Vero, MHMG MHMG [id number] 11:30:00 11:30:00 Fercho Smith 29 2017-04-28 2017-04-29 Outpatient nullFlavo [facility] Family 3 [id number] Memoria 20:00:00 05:59:59 r Medicine 28 matt Jody Cotton 2017-04-28 2017-04-28 Outpatient Georgie, MHMG MHMG [id number] 14:00:00 23:59:59 Isadora Steffanie Wood 2017-04-28 2017-04-28 Outpatient MHIE MHIE [id number] Memoria 14:00:00 14:00:00 28 matt Cotton 2017-04-13 2017-04-13 Ambulatory nullFlavo [facility] Family 3 [id number] Memoria 17:00:00 17:00:00 Pre-Reg r Medicine 27 matt Jody Cotton 2017-04-13 2017-04-13 Outpatient MHIE MHIE [id number] Memoria 11:00:00 11:00:00 27 matt Cotton 2017-04-13 2017-04-13 Outpatient Bebeto, MHMG MHMG [id number] 11:00:00 11:00:00 Charli Martinez 27 2017-02-23 2017-02-23 Outpatient MHIE MHIE [id number] Memoria 13:00:00 13:00:00 24 matt Cotton 2017-02-09 2017-02-09 Outpatient MHIE MHIE [id number] Memoria 11:15:00 11:15:00 26 matt Cotton 2017-01-28 2017-01-28 Outpatient MHIE MHIE [id number] Memoria 10:30:00 10:30:00 20 matt Cotton 2017-01-20 2017-01-20 Outpatient MHIE MHIE [id number] Memoria 10:30:00 10:30:00 12 matt Cotton 2017-01-20 2017-01-20 Outpatient MHIE MHIE [id number] Memoria 10:00:00 10:00:00 11 matt Cotton 2017-01-20 2017-01-20 Outpatient MHIE MHIE [id number] Memoria 10:00:00 10:00:00 21 matt Cotton 2016-07-30 2016-07-30 Outpatient MHIE MHIE [id number] Memoria 11:15:00 11:15:00 14 matt Cotton 2016-07-15 2016-07-15 Outpatient MHIE MHIE [id number] Memoria 14:30:00 14:30:00 19 matt Cotton 2016-06-03 2016-06-03 Outpatient MHIE MHIE [id number] Memoria 16:15:00 16:15:00 16 matt Cotton 2016-06-03 2016-06-03 Outpatient MHIE MHIE [id number] Memoria 15:45:00 15:45:00 18 matt Cotton 2016-06-03 2016-06-03 Outpatient MHIE MHIE [id number] Memoria 15:45:00 15:45:00 17 matt Cotton 2016-05-28 2016-05-28 Outpatient MHIE MHIE [id number] Memoria 15:00:00 15:00:00 15 matt Cotton 2016-01-30 2016-01-30 Outpatient MHIE MHIE [id number] Memoria 11:15:00 11:15:00 09 matt Cotton 2016-01-16 2016-01-16 Outpatient MHIE MHIE [id number] Memoria 11:45:00 11:45:00 13 matt Cotton 2016-01-16 2016-01-16 Outpatient MHIE MHIE [id number] Memoria 11:00:00 11:00:00 03 matt Cotton 2016-01-16 2016-01-16 Outpatient MHIE MHIE [id number] Memoria 10:30:00 10:30:00 02 matt Cotton 2015-10-14 2015-10-14 Outpatient MHIE MHIE [id number] Memoria 14:30:00 14:30:00 10 matt Cotton 2015-07-30 2015-07-30 [id number] Memoria 11:15:00 11:15:00 04 matt Cotton 2015-07-22 2015-07-22 [facility] [id number] Memoria 16:00:00 16:00:00 08 matt Cotton 2015-07-16 2015-07-16 Outpatient [facility] [id number] Memoria 13:15:00 13:15:00 06 matt Cotton 2015-07-16 2015-07-16 [facility] [id number] Memoria 13:15:00 13:15:00 07 matt Cotton 2015-07-16 2015-07-16 Outpatient [facility] [id number] Memoria 11:00:00 11:00:00 05 matt Cotton 2015-01-24 2015-01-24 [facility] [id number] Memoria 13:30:00 13:30:00 01 matt Cotton 2014-11-14 2014-11-14 [facility] [id number] Memoria 11:30:00 11:30:00 00 matt Cotton Results Test Description Test Time Test Comments Results Result Comments Source [facility]22-[facility]-06 16:13:19 Test Item Value Reference Range Interpretation Comme nts RADT (test code = RADRPT) EXAM: Abdomen/Pelvis w IV contrast CTDA TE: 05/05/2022 12:46.INDICATION: - diverticulitis.COMPARISON: CT abdomen pelvis 08/04/2020.TECHNIQUE: Volumetric CT acquisition of the abdomen and pelvis after the administration of intravenous contrast. Axial, coronal and sagittal reconstructions.AEC, mA/kV adjustment by patient size, and/or iterative reconstruction technique were used, per departmental dose-optimization program.Contrast phases: Venous and Delayed.IV contrast: 100 mL Omnipaque 300.Oral contrast: Omni mix.DLP: 418.92 mGy-cm.FINDINGS:Lines and Tubes: None.Lower Thorax: Stable 3 mm nodule in the right lower lobe, likely benign.Liver and Biliary Tree: There is diffuse fatty infiltration of the liver. No worrisome focal hepatic lesions are identified. The hepatic contour is smooth. There is no intrahepatic biliary ductal dilatation.Gallbladder: Normal. No CT evidence of gallstones.Adrenals: Normal.Spleen: Normal.Pancreas: Normal.Kidneys and Ureters: Normal. No hydronephrosis. There is bilateral excretion of contrast on the delayed images.Bladder: Contracted which limits its evaluation.Reproductive Organs: Partially calcified uterine fibroid.Gastrointestinal Tract: Colonic and small bowel diverticula are seen without surrounding inflammatory changes. No bowel wall thickening or dilatation.Appendix: NormalPeritoneum and Retroperitoneum: No free air or ascites.Lymph Nodes: No lymphadenopathy.Vasculature: Mild aortic atherosclerosis without aneurysm.Bones: No acute abnormality. There are degenerative changes in the lower lumbar spineSoft Tissues: No acute findings. A tiny, fat-containing umbilical hernia is present.IMPRESSION:No acute findings in the abdomen or pelvis. [facility]DhkdncfLLJLNIAVOE3062-32-26 19:58:00 Test Item Value Reference Range Interpretation Comments Coronavirus (COVID-19) Not Detected ARGENIS (test code = *NA*(05/08/21 1:58 PM) Coronavirus (COVID-19) ARGENIS) [facility]BV5073-39-59 18:21:00 Test Item Value Reference Range Interpretation Comments Coronavirus (COVID-19) Not Detected ARGENIS (test code = *NA*(01/02/21 1:21 PM) Coronavirus (COVID-19) ARGENIS) [facility]2021-05-04 19:40:00 Test Item Value Reference Range Interpretation Comments Glucose Lvl (test code = Glucose Lvl) 91 65-99 [facility] [id number] 19:40:00 Test Item Value Reference Range Interpretation Comments BUN (test code = BUN) 17 7-25 [facility]2021-05-04 19:40:00 Test Item Value Reference Range Interpretation Comments Creatinine Lvl (test code = Creatinine 0.84 0.60-0.88 Lvl) [facility]2021-05-04 19:40:00 Test Item Value Reference Range Interpretation Comments eGFR NON-AFR. PALESTINIAN (test code = 65 eGFR NON-AFR. PALESTINIAN) [facility]2021-05-04 19:40:00 Test Item Value Reference Range Interpretation Comments eGFR (test code = eGFR 75 ) [facility] [id number] 19:40:00 Test Item Value Reference Range Interpretation Comments B/C Ratio (test code = B/C NOT APPLICABLE 6-22 Ratio) [facility]2021-05-04 19:40:00 Test Item Value Reference Range Interpretation Comments Sodium Lvl (test code = Sodium Lvl) 137 135-146 [place] 528031-05-04 19:40:00 Test Item Value Reference Range Interpretation Comments Potassium Lvl (test code = Potassium 3.9 3.5-5.3 Lvl) [facility]2021-05-04 19:40:00 Test Item Value Reference Range Interpretation Comments Chloride Lvl (test code = Chloride Lvl) 101 98-110 [place] 528031-05-04 19:40:00 Test Item Value Reference Range Interpretation Comments CO2 (test code = CO2) 27 20-32 [place] 528031-05-04 19:40:00 Test Item Value Reference Range Interpretation Comments Calcium Lvl (test code = Calcium Lvl) 9.9 8.6-10.4 [place] 528031-05-04 19:40:00 Test Item Value Reference Range Interpretation Comments Total Protein (test code = Total 8.0 6.1-8.1 Protein) [facility]2021-05-04 19:40:00 Test Item Value Reference Range Interpretation Comments Albumin Lvl (test code = Albumin Lvl) 4.0 3.6-5.1 [place] 528031-05-04 19:40:00 Test Item Value Reference Range Interpretation Comments Globulin (test code = Globulin) 4.0 1.9-3.7 [place] 528031-05-04 19:40:00 Test Item Value Reference Range Interpretation Comments A/G Ratio (test code = A/G Ratio) 1.0 1.0-2.5 [place] 528031-05-04 19:40:00 Test Item Value Reference Range Interpretation Comments Bili Total (test code = Bili Total) 0.5 0.2-1.2 [place] 528031-05-04 19:40:00 Test Item Value Reference Range Interpretation Comments Alk Phos (test code = Alk Phos) 66 37-153 [facility]2021-05-04 19:40:00 Test Item Value Reference Range Interpretation Comments ASPARTATE TRANSAMINASE (test code = 17 10-35 ASPARTATE TRANSAMINASE) [facility]2021-05-04 19:40:00 Test Item Value Reference Range Interpretation Comments ALANINE AMINOTRANSFERASE (test code = 11 6-29 ALANINE AMINOTRANSFERASE) [facility]2021-05-04 19:40:00 Test Item Value Reference Range Interpretation Comments Uric Acid (test code = Uric Acid) 7.3 2.5-7.0 [facility]2021-05-04 19:40:00 Test Item Value Reference Range Interpretation Comments Vitamin D, 25-OH, Total (test code = 47 30-100 Vitamin D, 25-OH, Total) [facility]osdsbcOMMZWJYYEM3249-95-45 19:40:00 Test Item Value Reference Range Interpretation Comments WBC X 10x3 (test code = WBC X 10x3) 6.8 3.8-10.8 [place] 064071-05-04 19:40:00 Test Item Value Reference Range Interpretation Comments RBC X 10x6 (test code = RBC X 10x6) 4.82 3.80-5.10 [facility] HospitalBzvuqdoDSSZBABCTD7530-12-12 19:40:00 Test Item Value Reference Range Interpretation Comments Hgb (test code = Hgb) 14.5 11.7-15.5 [facility] HospitalImrgpgnFLEKYSAVAD5974-64-72 19:40:00 Test Item Value Reference Range Interpretation Comments Hct (test code = Hct) 44.1 35.0-45.0 [facility] HospitalLksrfsxTWKYKNWZHD4787-20-21 19:40:00 Test Item Value Reference Range Interpretation Comments MCV (test code = MCV) 91.5 80.0-100.0 [place] 21064-05-04 19:40:00 Test Item Value Reference Range Interpretation Comments MCH (test code = MCH) 30.1 pg 27.0-33.0 [place] 064071-05-04 19:40:00 Test Item Value Reference Range Interpretation Comments MCHC (test code = MCHC) 32.9 32.0-36.0 [place] 064071-05-04 19:40:00 Test Item Value Reference Range Interpretation Comments RDW (test code = RDW) 13.8 11.0-15.0 [facility] HospitalIettjwqYWNLUUTZPN2037-50-27 19:40:00 Test Item Value Reference Range Interpretation Comments Platelet (test code = Platelet) 231 140-400 [facility] HospitalYzpcfnpKBZBRONLWJ2997-39-27 19:40:00 Test Item Value Reference Range Interpretation Comments MPV (test code = MPV) 12.0 7.5-12.5 [facility] HospitalPizlphpHOBGPQRIPB8033-05-71 19:40:00 Test Item Value Reference Range Interpretation Comments Neutrophils # (test code = Neutrophils 2849 2793-4391 #) [facility] HospitalBdztqvjDEJMBCAPDA2887-39-53 19:40:00 Test Item Value Reference Range Interpretation Comments Lymphocytes # (test code = Lymphocytes 3053 850-3900 #) [facility] HospitalOrjrpppSGWZEGIKHD0736-57-81 19:40:00 Test Item Value Reference Range Interpretation Comments Monocytes # (test code = Monocytes #) 632 200-950 [facility] HospitalNwwvjutQDGOMKCBCX9653-55-01 19:40:00 Test Item Value Reference Range Interpretation Comments Eosinophils # (test code = Eosinophils 238 15-500 #) [facility] HospitalGqrknpyITZXWHXOFZ8802-69-38 19:40:00 Test Item Value Reference Range Interpretation Comments Basophils # (test code = Basophils #) 27 <=200 [facility] HospitalMvvbgmdQELTXLABPU0028-07-66 19:40:00 Test Item Value Reference Range Interpretation Comments Segs (test code = Segs) 41.9 [facility] HospitalRxdyqrnQYFUBPMLGW5407-69-60 19:40:00 Test Item Value Reference Range Interpretation Comments Lymphocytes (test code = Lymphocytes) 44.9 [facility] HospitalIbiuxjaFVVQVBRYOF7509-46-63 19:40:00 Test Item Value Reference Range Interpretation Comments Monocytes (test code = Monocytes) 9.3 [facility] HospitalJnxyaxnGHGPFLAXJE3840-88-73 19:40:00 Test Item Value Reference Range Interpretation Comments Eosinophils (test code = Eosinophils) 3.5 [facility] HospitalDkpftufIJZRPFYHTW4757-76-03 19:40:00 Test Item Value Reference Range Interpretation Comments Basophils (test code = Basophils) 0.4 [facility] HospitalLnonvaeGSFWFP1581-80-14 19:40:00 Test Item Value Reference Range Interpretation Comments Chol (test code = Chol) 121 [facility] HospitalBfkeftgUFDEUA4551-58-27 19:40:00 Test Item Value Reference Range Interpretation Comments HDL (test code = HDL) 46 [facility] HospitalPotpnifDRCPGF2807-55-03 19:40:00 Test Item Value Reference Range Interpretation Comments Trig (test code = Trig) 113 [facility] HospitalHemscxhSLHKJN4069-19-24 19:40:00 Test Item Value Reference Range Interpretation Comments LDL (Calculated) (test code = LDL 55 (Calculated)) [facility] HospitalWokrsaeQRHIPQ6385-97-14 19:40:00 Test Item Value Reference Range Interpretation Comments CHD Risk (test code = CHD Risk) 2.6 [facility] HospitalFmjcuwyMPGGHX8497-42-31 19:40:00 Test Item Value Reference Range Interpretation Comments Non HDL Chol (test code = Non HDL Chol) 75 [facility] HospitalZbokxonYHHZVTWYPXXG2610-76-44 10:23:00 Test Item Value Reference Range Interpretation Comments AGAP (test code = AGAP) 7.9 10.0-20.0 [facility] HospitalVbfxsubAJLIHMVWCDDA3953-35-90 10:23:00 Test Item Value Reference Range Interpretation Comments eGFR (test code = eGFR) 89 [facility] HospitalMlturitTKAIRLYCVDDI5059-80-37 10:23:00 Test Item Value Reference Range Interpretation Comments Calcium Lvl (test code = Calcium Lvl) 9.0 8.5-10.5 [facility] HospitalBzfdirvVTHKFWUNXGPC3515-01-04 10:23:00 Test Item Value Reference Range Interpretation Comments Potassium Lvl (test code = Potassium 3.9 3.5-5.1 Lvl) [facility] HospitalDqaceeuZKJHPXXULHIO7064-02-92 10:23:00 Test Item Value Reference Range Interpretation Comments CO2 (test code = CO2) 30 24-32 [facility] HospitalYjmvfqrOHHBPLKVHCMH3319-91-51 10:23:00 Test Item Value Reference Range Interpretation Comments Chloride Lvl (test code = Chloride Lvl) 104 95-109 [facility] HospitalXcxxtohFBLAHICLXWVM7014-89-85 10:23:00 Test Item Value Reference Range Interpretation Comments Sodium Lvl (test code = Sodium Lvl) 138 135-145 [facility] HospitalInokkozUBAVKLRNUHZR1632-70-90 10:23:00 Test Item Value Reference Range Interpretation Comments Creatinine Lvl (test code = Creatinine 0.74 0.50-1.40 Lvl) [facility] HospitalObfwxreRYCSIPUARXPX6008-29-96 10:23:00 Test Item Value Reference Range Interpretation Comments BUN (test code = BUN) 15 7-22 [facility] HospitalLmwdsnhYNVQWGHYDNCV8239-98-42 10:23:00 Test Item Value Reference Range Interpretation Comments Glucose Lvl (test code = Glucose Lvl) 106 70-99 [facility] HospitalNgaavqfHLFQDSRQRL2458-90-17 10:23:00 Test Item Value Reference Range Interpretation Comments RBC (test code = RBC) 4.44 4.20-5.40 [facility] HospitalHilscmaMFTEFWIERP5652-04-49 10:23:00 Test Item Value Reference Range Interpretation Comments MCV (test code = MCV) 89.5 80.0-98.0 [facility] HospitalTfiarmvNPJKHSFIWN5486-51-40 10:23:00 Test Item Value Reference Range Interpretation Comments Hct (test code = Hct) 39.7 36.0-48.0 [facility] HospitalDutvbalVRIRORNJOF0425-76-34 10:23:00 Test Item Value Reference Range Interpretation Comments Hgb (test code = Hgb) 13.1 12.0-16.0 [facility] HospitalUmehoxtJKGTABDNHG9155-79-48 10:23:00 Test Item Value Reference Range Interpretation Comments WBC (test code = WBC) 9.3 3.7-10.4 [facility] HospitalAtqmzerDGAPLNWJCW9597-71-70 10:23:00 Test Item Value Reference Range Interpretation Comments Platelet (test code = Platelet) 201 133-450 [facility] HospitalUfyccplYBESVKXOEJ8699-98-61 10:23:00 Test Item Value Reference Range Interpretation Comments RDW (test code = RDW) 14.7 11.5-14.5 [facility] HospitalMmzhijuKZUXOKGBWJ0334-27-84 10:23:00 Test Item Value Reference Range Interpretation Comments MCHC (test code = MCHC) 33.0 32.0-36.0 [facility]aw[facility]UBZUCGSDAO1643-27-47 10:23:00 Test Item Value Reference Range Interpretation Comments MPV (test code = MPV) 9.5 7.4-10.4 [facility]QnnbgdcVUGLIYTHIG3509-67-00 10:23:00 Test Item Value Reference Range Interpretation Comments MCH (test code = MCH) 29.5 pg 27.0-31.0 [facility] HospitalRnhpajhGPHKWOKVGC1351-43-30 10:23:00 Test Item Value Reference Range Interpretation Comments Neutrophils # (test code = Neutrophils 5.6 1.5-8.1 #) [facility]XcvdnjkVDGWCLBWCN4960-48-56 10:23:00 Test Item Value Reference Range Interpretation Comments Basophils # (test code = Basophils #) 0.0 <=0.2 [facility] HospitalObixrnuUVTJZNQFCG3486-96-74 10:23:00 Test Item Value Reference Range Interpretation Comments Eosinophils # (test code = Eosinophils 0.2 <=0.5 #) [facility]LdtfsxfHDXOTYMHTU3270-27-14 10:23:00 Test Item Value Reference Range Interpretation Comments Monocytes # (test code = Monocytes #) 0.6 <=0.8 [facility] HospitalJphbbruLBOSTWZPYB3902-93-05 10:23:00 Test Item Value Reference Range Interpretation Comments Lymphocytes # (test code = Lymphocytes 2.9 1.0-5.5 #) [facility] HospitalJdngymaHTPFPHIKME1234-95-70 10:23:00 Test Item Value Reference Range Interpretation Comments Eosinophils (test code = Eosinophils) 2.0 <=4.0 [facility] HospitalBwbzgltIYZAVDSQUH4421-40-73 10:23:00 Test Item Value Reference Range Interpretation Comments Monocytes (test code = Monocytes) 6.6 2.0-12.0 [facility] HospitalLuxgjqbQMQCWKUSBL4438-42-14 10:23:00 Test Item Value Reference Range Interpretation Comments Lymphocytes (test code = Lymphocytes) 31.3 20.0-40.0 [facility] HospitalIjljsulZBPFHGCCIH3193-55-54 10:23:00 Test Item Value Reference Range Interpretation Comments Basophils (test code = Basophils) 0.5 <=1.0 [facility] HospitalIrvztxiKAVVFTHWII2794-95-96 10:23:00 Test Item Value Reference Range Interpretation Comments Segs (test code = Segs) 59.6 45.0-75.0 [facility]dddkwQKMYQHNBNYCV3504-36-32 00:04:00 Test Item Value Reference Range Interpretation Comments AGAP (test code = AGAP) 9.9 10.0-20.0 [facility] HospitalCshmzuuDGOAQKYVBMJQ8075-43-48 00:04:00 Test Item Value Reference Range Interpretation Comments B/C Ratio (test code = B/C Ratio) 17 1 6-25 [facility] HospitalAtxpmtkBIREGNHVWJUW6630-21-82 00:04:00 Test Item Value Reference Range Interpretation Comments Globulin (test code = Globulin) 5.3 2.7-4.2 [facility] HospitalIusaelpAOFSAHJQTNVD7180-48-40 00:04:00 Test Item Value Reference Range Interpretation Comments A/G Ratio (test code = A/G Ratio) 0.6 1 0.7-1.6 [facility] HospitalPldtxsbAPEHZGSZQSTU0595-20-32 00:04:00 Test Item Value Reference Range Interpretation Comments eGFR (test code = eGFR) 86 [facility] HospitalJafqebgKZCUEOETWVLS1640-68-35 00:04:00 Test Item Value Reference Range Interpretation Comments Potassium Lvl (test code = Potassium 3.9 3.5-5.1 Lvl) [facility] HospitalXqiburyXBZHGDUTVNPO0550-00-04 00:04:00 Test Item Value Reference Range Interpretation Comments Chloride Lvl (test code = Chloride Lvl) 103 95-109 [facility] HospitalSsvivsnBNVPZPPAVDLA9641-81-27 00:04:00 Test Item Value Reference Range Interpretation Comments Total Protein (test code = Total 8.5 6.4-8.4 Protein) [facility] HospitalKxvthlyDJDZZSLQKUQW1654-82-29 00:04:00 Test Item Value Reference Range Interpretation Comments CO2 (test code = CO2) 28 24-32 [facility] HospitalDrdkanwFQYDNYTWYWFR7194-79-63 00:04:00 Test Item Value Reference Range Interpretation Comments Calcium Lvl (test code = Calcium Lvl) 9.5 8.5-10.5 [facility] HospitalQcwnclhZIPVBOXQGXYA3819-17-75 00:04:00 Test Item Value Reference Range Interpretation Comments Albumin Lvl (test code = Albumin Lvl) 3.2 3.5-5.0 [facility] HospitalSnjvaimOTVWWKCAPACS2982-10-08 00:04:00 Test Item Value Reference Range Interpretation Comments ALT (test code = ALT) 22 <=65 [facility] HospitalPrqnzhwYVCNKXIBQYLH0262-16-76 00:04:00 Test Item Value Reference Range Interpretation Comments Alk Phos (test code = Alk Phos) 73 39-136 [facility]AuugnbfTGSPLLCNBLVH9358-69-33 00:04:00 Test Item Value Reference Range Interpretation Comments AST (test code = AST) 14 <=37 [facility] HospitalGzthzhlUGCYGCWVDLHV8348-89-01 00:04:00 Test Item Value Reference Range Interpretation Comments Creatinine Lvl (test code = Creatinine 0.76 0.50-1.40 Lvl) [facility] HospitalIadzlfoALGAMOYOUEYY1531-94-53 00:04:00 Test Item Value Reference Range Interpretation Comments Glucose Lvl (test code = Glucose Lvl) 84 70-99 [facility] HospitalVujwrmrUUZBDEJHFZLO0531-97-39 00:04:00 Test Item Value Reference Range Interpretation Comments BUN (test code = BUN) 13 7-22 [facility] HospitalEkbfjzuMMUFTNHJBFTC9798-48-04 00:04:00 Test Item Value Reference Range Interpretation Comments Sodium Lvl (test code = Sodium Lvl) 137 135-145 [facility] HospitalDcfvdbfGJNLAMRCYZPV5271-71-28 00:04:00 Test Item Value Reference Range Interpretation Comments Bili Total (test code = Bili Total) 0.4 0.2-1.3 [facility] HospitalAhywyiaFSPIXHEFZK2497-39-71 00:04:00 Test Item Value Reference Range Interpretation Comments Monocytes # (test code = Monocytes #) 0.8 <=0.8 [facility] HospitalAxvkxirBZCAUVOZMG0253-46-45 00:04:00 Test Item Value Reference Range Interpretation Comments Eosinophils # (test code = Eosinophils 0.2 <=0.5 #) [facility] HospitalDxizikfSWNBYKDDDY0591-45-63 00:04:00 Test Item Value Reference Range Interpretation Comments Basophils # (test code = Basophils #) 0.0 <=0.2 [facility] HospitalEocymjiRXVTDTGMZJ5649-48-89 00:04:00 Test Item Value Reference Range Interpretation Comments Lymphocytes # (test code = Lymphocytes 3.3 1.0-5.5 #) [facility]EjssjtlNFXKLDFHUC8633-63-66 00:04:00 Test Item Value Reference Range Interpretation Comments Neutrophils # (test code = Neutrophils 6.6 1.5-8.1 #) [facility] HospitalDnunjicDIQJGGGWMD5403-69-63 00:04:00 Test Item Value Reference Range Interpretation Comments Eosinophils (test code = Eosinophils) 1.9 <=4.0 [facility] HospitalBkeuuryFQQVMPFYNC5607-35-51 00:04:00 Test Item Value Reference Range Interpretation Comments Basophils (test code = Basophils) 0.4 <=1.0 [facility] HospitalXgmzftuIHFIYQWPJR3682-65-13 00:04:00 Test Item Value Reference Range Interpretation Comments Monocytes (test code = Monocytes) 7.1 2.0-12.0 [facility] HospitalAhrhbyjUQVSDCIYOU1597-39-03 00:04:00 Test Item Value Reference Range Interpretation Comments Lymphocytes (test code = Lymphocytes) 30.4 20.0-40.0 [facility] HospitalWjhhnphCVDZGAYZTD0734-73-56 00:04:00 Test Item Value Reference Range Interpretation Comments Segs (test code = Segs) 60.2 45.0-75.0 [facility] HospitalFamxixeWNVSZJDVRM5574-20-60 00:04:00 Test Item Value Reference Range Interpretation Comments WBC (test code = WBC) 11.0 3.7-10.4 [facility] HospitalDuopgrmCQAGSFBDFA4391-36-09 00:04:00 Test Item Value Reference Range Interpretation Comments Hgb (test code = Hgb) 14.8 12.0-16.0 [facility] HospitalGouhivuQDGGVGJHNZ3013-33-97 00:04:00 Test Item Value Reference Range Interpretation Comments MCV (test code = MCV) 90.4 80.0-98.0 [facility] HospitalNjywlnuNEUUGBAVQO6380-29-25 00:04:00 Test Item Value Reference Range Interpretation Comments Hct (test code = Hct) 45.2 36.0-48.0 [facility] HospitalVdwozvmVAFJPAIJVI5006-45-24 00:04:00 Test Item Value Reference Range Interpretation Comments MCHC (test code = MCHC) 32.8 32.0-36.0 [facility] HospitalWptkidcLPDRIDFMKD7797-29-50 00:04:00 Test Item Value Reference Range Interpretation Comments MCH (test code = MCH) 29.6 pg 27.0-31.0 [facility] HospitalXxqzvmkNBTXZSYBXR8200-50-58 00:04:00 Test Item Value Reference Range Interpretation Comments RBC (test code = RBC) 5.00 4.20-5.40 [facility] HospitalYpekbrpVXQSNPAPQY6320-61-86 00:04:00 Test Item Value Reference Range Interpretation Comments MPV (test code = MPV) 9.8 7.4-10.4 [facility] HospitalQxuvgntIEYSFGHBEY3803-22-97 00:04:00 Test Item Value Reference Range Interpretation Comments Platelet (test code = Platelet) 234 133-450 [facility] HospitalFhaugyfGVRHPXVMUG7943-63-72 00:04:00 Test Item Value Reference Range Interpretation Comments RDW (test code = RDW) 14.8 11.5-14.5 [facility]
[2023-02-04 09:23] LABS: Specific Gravity 1.019 (1.005-1.030); Urine Bilirubin NEGATIVE (Negative); Urine Blood Negative (Negative); Urine Clarity Clear (Clear); Urine Color Light-Yellow (Yellow); Urine Glucose NEGATIVE (Negative); Urine Protein NEGATIVE (Negative); Urine Urobilinogen Normal (Normal)
--- NOTE | 2023-02-04 09:25 | RAD REPORT ---
EXAM DESCRIPTION: CT - Stone Protocol - 02/04/2023 9:17 am CLINICAL HISTORY: Abdominal pain. Left flank pain COMPARISON: 2018 TECHNIQUE: Computed axial tomography of the abdomen pelvis was obtained without oral or IV contrast. Lack of IV and oral contrast limits evaluation of solid organs, appendix, bowel, and vessels. Mur[place] l reformatted images were obtained and reviewed. All CT scans are performed using dose optimization technique as appropriate and may include automated exposure control or mA/KV adjustment according to patient size. FINDINGS: A renal calculus is not seen. An ureteral calculus is not noted. A bladder calculus is not present. No hydronephrosis Fatty liver. Spleen, pancreas and adrenals appear grossly normal. Diverticula stem from the colon. Mild stranding adjacent to the sigmoid colon. No abscess. No free ai r. Rectum is mildly distended with stool Calcified uterine fibroids Small to moderate umbilical hernia. Normal appendix IMPRESSION: Negative for a genitourinary calculus Mild sigmoid diverticulitis
[2023-02-04 09:59] LABS: Albumin 3.3 g/dL (3.4-5.0); Bilirubin Total 0.6 mg/dL (0.2-1.0); Potassium 3.6 mEq/L (3.5-5.1); Protein, Total 8.5 g/dL (6.4-8.2)
[2023-02-04] MEDS ORDERED: ONDANSETRON 4 MG/2 ML VIAL ONE (09:59)
[2023-02-04] MEDS ORDERED: NA CHLORIDE 0.9% 1,000 ML ONE (09:59)
[2023-02-04] MEDS ORDERED: MORPHINE 4 MG/ML SYR ONE (09:59)
[2023-02-04 10:09] LABS: Absolute Lymphocytes (CBC) 2.6 K/uL (0.7-4.9); Hematocrit 36.9 % (36.0-45.0); Lymphocytes % 34.5 % (15.3-44.8); MCV 86.9 fL (80-100); MPV 9.2 fL (7.6-11.3); Platelets 201 thou/uL (152-406); RBC Red Blood Cell Count 4.24 M/uL (3.86-4.86)
--- NOTE | 2023-02-04 10:18 | EDPHYS ---
Physician Documentation [facility] Name: You Briceño Age: 82 yrs Sex: Female : 1940 Arrival Date: 02/04/2023 Time: 08:34 Bed 13 Private MD: ED Physician Freya Land HPI: 02/04 08:51 This 82 yrs old Black Female presents to ER via Wheelchair with complaints of Back Pain.jh7 08:51 The patient presents with pain that is acute, with no known mechanism of injury. The jh7 symptoms are located in the left low back. Onset: The symptoms/episode began/occurred last night. The pain does not radiate. Associated signs and symptoms: The patient has no apparent associated signs or symptoms. Patient reports left flank pain since last night and reports that she is concerned that there is an issue with her kidneys. History of gout and hypertension. Denies any other symptoms at this time.. Historical: - Allergies: 08:52 Levofloxacin; hb 08:52 adhesive tape; hb - PMHx: 08:52 Gout; Hypertensive disorder; hb - PSHx: 08:52 tubal; hb - Immunization history:: Adult Immunizations up to date. - Social history:: Smoking status: Patient denies any tobacco usage or history of. ROS: 08:51 Constitutional: Negative for fever, chills, and weight loss, Eyes: Negative for injury, jh7 pain, redness, and discharge, Cardiovascular: Negative for chest pain, palpitations, and edema, Respiratory: Negative for shortness of breath, cough, wheezing, and pleuritic chest pain, Abdomen/GI: Negative for abdominal pain, nausea, vomiting, diarrhea, and constipation, MS/Extremity: Negative for injury and deformity, Skin: Negative for injury, rash, and discoloration, Neuro: Negative for headache, weakness, numbness, tingling, and seizure, 08:51 Back: Positive for flank pain, on the left, 08:51 All other systems are negative, Exam: 08:51 Constitutional: This is a well developed, well nourished patient who is awake, alert, jh7 and in no acute distress. Head/Face: Normocephalic, atraumatic. Cardiovascular: Regular rate and rhythm with a normal S1 and S2. No gallops, murmurs, or rubs. Normal PMI, no JVD. No pulse deficits. Respiratory: Lungs have equal breath sounds bilaterally, clear to auscultation and percussion. No rales, rhonchi or wheezes noted. No increased work of breathing, no retractions or nasal flaring. Abdomen/GI: Soft, non-tender, with normal bowel sounds. No distension or tympany. No guarding or rebound. No evidence of tenderness throughout. Skin: Warm, dry with normal turgor. Normal color with no rashes, no lesions, and no evidence of cellulitis. MS/ Extremity: Pulses equal, no cyanosis. Neurovascular intact. Full, normal range of motion. Neuro: Awake and alert, GCS 15, oriented to person, place, time, and situation. Sensory grossly intact. 08:51 Back: ROM is painful, with all movement, CVA tenderness, that is mild, is noted on the left, pain is reproducible with any movement, Vital Signs: 08:51 BP 154 / 82; Pulse 73; Resp 16; Temp 97.8(O); Pulse Ox 99% on R/A; Weight 73.48 kg; hb Height 5 ft. 6 in. ; Pain 10/10; 09:44 BP 135 / 80; Pulse 74; Resp 18; Temp 98; Pulse Ox 99% ; Weight 73.48 kg; Height 5 ft. 6 ls5 in. ; 11:10 BP 116 / 60; Pulse 66; Resp 15; Pulse Ox 99% ; Pain 0/10; jl7 09:44 Body Mass Index 26.15 (73.48 kg, 167.64 cm) ls5 08:51 Pain Scale: Adult hb 11:10 Pain Scale: Adult jl7 MDM: 08:54 Patient medically screened. [facility] 10:20 Differential diagnosis: arthritis, chronic back pain, Osteoarthritis Pyelonephritis [facility] Ureterolithiasis. Data reviewed: vital signs, nurses notes, lab test result(s), radiologic studies, CT scan. I considered the following discharge prescriptions or medication management in the emergency department Medications were administered in the Emergency Department. See MAR. Care significantly affected by the following chronic conditions: Hypertension. Counseling: I had a detailed discussion with the patient and/or guardian regarding the historical points, exam findings, and any diagnostic results supporting the discharge/admit diagnosis, to return to the emergency department if symptoms worsen or persist or if there are any questions or concerns that arise at home. Special discussion: I discussed with the patient the need to follow-up with the PCP/specialist for the noted incidental finding on X-ray/CT scanning. Informed patient of mild diverticulitis found on CT. She stated that she had a history of diverticulitis, and although this pain did not feel like her typical diverticulitis, she agreed to take an antibiotic in case her symptoms changed. PCP follow-up advised.. ED course: The patient remained hemodynamically stable throughout the ER visit. Her pain did improve with pain medicine. Reexamined the patient, and her pain remained at about left L1-L2. The pain was completely reproducible with any movement of the back. Informed the patient that this pain was likely musculoskeletal in nature, but PCP follow-up was advised. If she develops any new concerning symptoms, she is advised to return to the ER for further eval. The patient understood the plan of care.. 02/04 09:00 Order name: CBC with Diff; Complete Time: 10: [facility] 02/04 09:00 Order name: CMP; Complete Time: : [facility] 02/04 09:00 Order name: Lipase; Complete Time: 10: [facility] 02/04 09:00 Order name: Urinalysis w/ reflexes; Complete Time: : [facility] 02/04 09:00 Order name: CT Stone Protocol; Complete Time: : [facility] 02/04 09:00 Order name: IV Saline Lock; Complete Time: :43 [facility] 02/04 09:00 Order name: Labs collected and sent; Complete Time: : [facility] Administered Medications: :50 Drug: NS 0.9% IV 1000 ml IV at 1 bolus Per protocol; 1000 mL bolus Route: IV; Rate: 1 jl7 bolus; Site: left antecubital; :08 Follow up: IV Status: Completed infusion; IV Intake: 1000ml [facility] :50 Drug: Ondansetron IVP 4 mg IVP once; over 2 minutes Route: IVP; Site: left antecubital; jl7 11:09 Follow up: Response: No adverse reaction [facility] 09:50 Drug: morphine IVP or IV 4 mg IVP once over 4 mins Route: IVP; Infused Over: 4 mins; jl7 Site: left antecubital; 10:15 Follow up: Response: No adverse reaction; Pain is decreased [facility] 10:46 Drug: fentaNYL (PF) IVP 25 mcg IVP once Route: IVP; Site: left antecubital; [facility] 11:08 Follow up: Response: No adverse reaction; Pain is decreased [facility] Disposition: 15:30 Co-signature as Attending Physician, Freya Land MD I agree with the assessment and [facility] plan of care. Disposition Summary: 02/04/23 10:18 Discharge Ordered Notes: Location: Home [facility] Problem: new [facility] Symptoms: have improved [facility] Condition: Stable [facility] Diagnosis - Low back pain [facility] - Sigmoid diverticulitis [facility] Followup: [facility] - With: Private Physician - When: 2 - 3 days - Reason: Recheck today's complaints Discharge Instructions: - Discharge Summary Sheet [facility] - Acute Back Pain, Adult [facility] - Diverticulitis [facility] - Musculoskeletal Pain [facility] Forms: - Medication Reconciliation Form [facility] - Thank You Letter [facility] - Antibiotic Education [facility] - Prescription Opioid Use [facility] - Patient Portal Instructions [facility] - Leadership Thank You Letter [facility] Prescriptions: - Augmentin 875-125 mg Oral tablet - take 1 tablet ORAL route every 12 hours for 7 days; 14 tablet; Refills: 0, [facility] Product Selection Permitted - Tramadol 50 mg Oral Tablet - take 1 tablet ORAL route every 8 hours as needed; 12 tablet; Refills: 0, [facility] Product Selection Permitted Signatures: Dispatcher [employer] Freya Yoder MD MD cp3 Jennifer Heaton RN RN Eloy Ramos RN RN jl7 Camille Bloom FNP [employer] DESIGN [employer]PER[employer] [facility] Corrections: (The following items were deleted from the chart) 10:25 08:51 Back: CVA tenderness, that is mild, is noted on the left, [place] [id number]
--- NOTE | 2023-02-04 10:18 | ER ---
Nurse's Notes [facility] Name: You Briceño Age: 82 yrs Sex: Female : 1940 Arrival Date: 02/04/2023 Time: 08:34 Bed 13 Private MD: Diagnosis: Low back pain;Sigmoid diverticulitis Presentation: 02/04 08:51 Chief complaint: Left mid back pain, worse with movement since last night. Denies hb injury/urinary s/s. Coronavirus screen: At this time, the client does not indicate any symptoms associated with coronavirus-19. Ebola Screen: No symptoms or risks identified at this time. Initial Sepsis Screen: Does the patient meet any 2 criteria? No. Patient's initial sepsis screen is negative. Does the patient have a suspected source of infection? No. Patient's initial sepsis screen is negative. Risk Assessment: Do you want to hurt yourself or someone else? Patient reports no desire to harm self or others. Onset of symptoms was February 03, 2023. 08:51 Method Of Arrival: Wheelchair hb 08:51 Acuity: RORY 3 hb Historical: - Allergies: 08:52 Levofloxacin; hb 08:52 adhesive tape; hb - PMHx: 08:52 Gout; Hypertensive disorder; hb - PSHx: 08:52 tubal; hb - Immunization history:: Adult Immunizations up to date. - Social history:: Smoking status: Patient denies any tobacco usage or history of. Screenin:30 [facility] ED Fall Risk Assessment (Adult) History of falling in the last 3 months, jl7 including since admission No falls in past 3 months (0 pts) Score/Fall Risk Level 0 - 2 = Low Risk Oriented to surroundings, Maintained a safe environment. Abuse screen: Denies threats or abuse. Denies injuries from another. Nutritional screening: No deficits noted. Tuberculosis screening: No symptoms or risk factors identified. Assessment: 09:45 General: Appears in no apparent distress. uncomfortable, Behavior is calm, cooperative, jl7 appropriate for age. Pain: Complains of pain in left low back Pain currently is 10 out of 10 on a pain scale. Neuro: Level of Consciousness is awake, alert, obeys commands, Oriented to person, place, time, situation. Cardiovascular: Patient's skin is warm and dry. Respiratory: Airway is patent Respiratory effort is even, unlabored, Respiratory pattern is regular, symmetrical. GI: Patient currently denies diarrhea, nausea, vomiting. : Denies burning with urination. Derm: Skin is pink, warm \T\ dry. 10:30 Reassessment: Patient appears in no apparent distress at this time. Patient and/or jl7 family updated on plan of care and expected duration. Pain level reassessed. Patient is alert, oriented x 3, equal unlabored respirations, skin warm/dry/pink. Patient states feeling better. Patient states symptoms have improved. Vital Signs: 08:51 BP 154 / 82; Pulse 73; Resp 16; Temp 97.8(O); Pulse Ox 99% on R/A; Weight 73.48 kg; hb Height 5 ft. 6 in. ; Pain 10/10; 09:44 BP 135 / 80; Pulse 74; Resp 18; Temp 98; Pulse Ox 99% ; Weight 73.48 kg; Height 5 ft. 6 ls5 in. ; 11:10 BP 116 / 60; Pulse 66; Resp 15; Pulse Ox 99% ; Pain 0/10; jl7 09:44 Body Mass Index 26.15 (73.48 kg, 167.64 cm) ls5 08:51 Pain Scale: Adult hb 11:10 Pain Scale: Adult jl7 ED Course: 08:39 Patient arrived in ED. ts1 08:52 Triage completed. hb 08:53 Arm band placed on. hb 08:54 Camille Bloom FNP is PHCP. jh7 08:54 Freya Land MD is Attending Physician. jh7 09:17 CT Stone Protocol In Process Unspecified. EDMS 09:32 Eloy Ramos RN is Primary Nurse. jl7 09:36 Inserted saline lock: 20 gauge in left antecubital area, using aseptic technique. Blood ls5 collected. 09:37 Urine collected: clean catch specimen, clear. ls5 10:30 Patient has correct armband on for positive identification. Provided Education on: use jl7 of call sanchez. 10:30 No provider procedures requiring assistance completed. jl7 11:13 IV discontinued, intact, bleeding controlled, No redness/swelling at site. Pressure jl7 dressing applied. Administered Medications: 09:50 Drug: NS 0.9% IV 1000 ml IV at 1 bolus Per protocol; 1000 mL bolus Route: IV; Rate: 1 jl7 bolus; Site: left antecubital; 11:08 Follow up: IV Status: Completed infusion; IV Intake: 1000ml jl7 09:50 Drug: Ondansetron IVP 4 mg IVP once; over 2 minutes Route: IVP; Site: left antecubital; jl7 11:09 Follow up: Response: No adverse reaction jl7 09:50 Drug: morphine IVP or IV 4 mg IVP once over 4 mins Route: IVP; Infused Over: 4 mins; jl7 Site: left antecubital; 10:15 Follow up: Response: No adverse reaction; Pain is decreased jl7 10:46 Drug: fentaNYL (PF) IVP 25 mcg IVP once Route: IVP; Site: left antecubital; jl7 11:08 Follow up: Response: No adverse reaction; Pain is decreased jl7 Medication: 10:30 VIS not applicable for this client. jl7 Intake: 11:08 IV: 1000ml; Total: 1000ml. jl7 Outcome: 10:18 Discharge ordered by . adeel 11:13 Discharged to home ambulatory, jl7 11:13 Condition: stable 11:13 Discharge instructions given to patient, friend, Instructed on discharge instructions, follow up and referral plans. medication usage, Demonstrated understanding of instructions, follow-up care, medications, Prescriptions given X 2, 11:13 Patient left the ED. jl7 Signatures: Dispatcher [employer] EDMS Jennifer Heaton RN RN Eloy Butcher RN RN jl7 Camille Bloom, [employer] 7 Jonathan Barajas5 Guillermina De Los Santos PAS PAS ts1 Corrections: (The following items were deleted from the chart) 11:13 10:30 IV discontinued, intact, bleeding controlled, No redness/swelling at site. jl7 Pressure dressing applied, jl7
[2023-02-04] MEDS ORDERED: FENTANYL CITR 100 MCG/2 ML ONE (10:57)
[2023-02-04 11:39] VITALS: O2SAT 99
[2023-02-04 11:41] VITALS: TEMP 98
[2023-02-04 11:42] VITALS: BP 116/60
== END 2023-02-04 11:13 | disposition home or self-care (01) ==
LOC: ER 08:34
DX: K57.32 Diverticulitis of large intestine without perforation or abscess without bleeding (principal); I10 Essential (primary) hypertension; Z88.1 Allergy status to other antibiotic agents; Z91.048 Other nonmedicinal substance allergy status
CPT/HCPCS: 96361; 85025; 36415; 81003; 83690; 80053; 76377; 74176; 96375; 96374; 99284; J3010; J2405; J7030

== ENCOUNTER 2023-07-27 07:12 | Day surgery (SDC) | payer OTHER ==
--- NOTE | 2023-07-25 16:29 | RAD REPORT ---
EXAM DESCRIPTION: RAD - Chest Pa And Lat (2 Views) - 07/25/2023 4:21 pm CLINICAL HISTORY: Pre op pending hidradenitis removal Chest pain. COMPARISON: <Comparisons> FINDINGS: The lungs are clear. The heart is normal in size. No displaced fractures. IMPRESSION: No acute or concerning finding suspected.
[2023-07-25 16:31] LABS: Absolute Basophils 0.1 K/uL (0-0.5); Absolute Eosinophils 0.4 K/uL (0-0.5); Absolute Lymphocytes (CBC) 3.2 K/uL (0.7-4.9); Absolute Monocytes 0.7 K/uL (0.1-1.3); Absolute Neutrophil 3.5 K/uL (1.8-8.0); Basophils % 1.1 % (0-1.3); Eosinophils % 4.7 % (0-4.4); Hematocrit 36.3 % (36.0-45.0); Hemoglobin 12.7 g/dL (12.0-15.0); Lymphocytes % 40.4 % (15.3-44.8); MCH 30.7 pg (27.0-35.0); MCHC 34.9 g/dL (32.0-36.0); MCV 87.9 fL (80-100); MPV 9.8 fL (7.6-11.3); Monocytes % 8.9 % (3.3-12.3); Neutrophils % 44.9 % (41.7-73.7); Platelets 192 thou/uL (152-406); RBC Red Blood Cell Count 4.12 M/uL (3.86-4.86); Red Cell Distribution Width 14.9 % (12.1-15.2)
[2023-07-25 16:51] LABS: Anion Gap 7.3 mEq/L (5.0-15.0); Potassium 3.3 mEq/L (3.5-5.1)
--- NOTE | 2023-07-26 16:17 | EKG ---
Test Date: 2023-07-25 Test Time: 15:55:26 Tower Loader Operator: MEASUREMENT RESULTS: Intervals: Rate: 75 DC: 158 QRSD: 72 QT: 340 QTc: 379 [facility]: P: 72 DC: 158 QRS: 37 T: 71 INTERPRETIVE STATEMENTS: Sinus rhythm with occasional premature ventricular complexes Nonspecific T wave abnormality Abnormal ECG Compared to ECG 11/10/2020 18:58:29 Ventricular premature complex(es) now present T-wave abnormality still present Electronically Signed On 07-26-23 16:14:45 CDT by Kaleb Londono
[2023-07-27] MEDS: Ringers Lactate 1,000 ML IV ONE (07:35)
[2023-07-27 08:18] VITALS: O2SAT 100
[2023-07-27] MEDS ORDERED: propofoL 200 MG/20 ML VIAL IV ONE (08:19)
[2023-07-27] MEDS ORDERED: LIDOCAINE 1% MPF 5 ML VIAL ONE (08:19)
[2023-07-27] MEDS ORDERED: FENTANYL CITR 100 MCG/2 ML ONE (08:19)
[2023-07-27] MEDS: CEFAZOLIN SODIUM 1 GM/VIAL ONE (09:08)
[2023-07-27] MEDS ORDERED: dexAMETHasone 4 MG/ML VIAL ONE (09:22)
[2023-07-27] MEDS ORDERED: ONDANSETRON 4 MG/2 ML VIAL ONE (09:22)
[2023-07-27] MEDS ORDERED: KETOROLAC 30 MG/ML INJ ONE (09:22)
--- NOTE | 2023-07-27 10:04 | P.BOP ---
Preoperative diagnosis: bilateral axillary suppurative hidradenitis Postoperative diagnosis: same Primary procedure: Wide excision bilateral axillary suppurative hidradenitis Secondary procedure: Left axilla 3x2cm, Right axilla 2x2cm Estimated blood loss: <10cc Specimen: as above Findings: as above Anesthesia: General Complications: None Transferred to: Recovery Room Condition: Good
[2023-07-27 11:55] VITALS: BP 120/66; TEMP 96.9
--- NOTE | 2023-07-27 14:54 | OP ---
Date of Procedure: 07/27/2023 Surgeon: Morales Augustin MD Preoperative Diagnosis: Bilateral axillary suppurative hidradenitis. Postoperative Diagnosis: Bilateral axillary suppurative hidradenitis. Procedure: Wide excision of bilateral axillary suppurative hidradenitis on the left side 3 x 2 cm, o n the right side it is 2 x 2 cm. Estimated Blood Loss: Less than 10 cc. Specimen: As above. Anesthesia: General plus local. Indications: This is a case of an 83-year-old patient who came with some areas of recurrent suppurat kisha hidradenitis, then she go on to cleaning the area, antibiotics, it goes down once again, the lump continues and then it gets reinfected once again and she just had enough of that. She wants to see if we can remove that area that bothers her in that region because she feels a lump underneath that I believe is the cavity created by on and off infection from that suppurative hidradenitis. Patient w as previously placed on antibiotics to cool it down. Right now, she found a window of opportunity to have it removed since she preferred this to be done and closed primary intention. So the benefits, alternatives, and risks of a wide excision of suppurative hidradenitis fully explained to the patient which include, but not limited to, infection, bleeding, damage to adjacent structures, anesthesia co mplication, nonhealing wound, recurrence, MT, and even . She also understands this may not reli destiny any symptoms. She might need more than one surgical intervention. She understood, signed a cons ent. Also we marked the area of concern, me and her in the holding room. She was also explained claribel t the rest of the axillary may experience similar symptoms. So, we found opportunities to diminish t he chance of those glands to be plugged and trying to minimize this from happening in the future in s ome other areas. She understood that. Description Of Procedure: The patient was brought to the operating room, placed in supine position. Anesthesia was done without complication. Bilateral axillary area was prepped and draped in the usu al sterile fashion. Local anesthesia was applied on a wide excision of the areas of concern. On the left axilla, it is 3 x 2 cm. In the right axilla, it is 2 x 2. We came down about 1 cm from when I had seen her in my office since the inflammation came down and then we have the specific mass itself . Both of them done were using the same technique which consisted of local anesthetic and a wedge in cision of the skin all the way down to fatty area and then area was irrigated. Hemostasis was obtain ed. Local anesthetic was applied and then closed the area with 3-0 chromic and nenita. The same wa s done on the left and right side. Patient tolerated each procedure well, covered with sterile dress ings. Patient was sent to Recovery in stable condition. LOGAN/ADAM Voice ID: [id number] Report ID: [id number]
--- NOTE | 2023-07-27 15:06 | DS ---
Date of Discharge: 07/27/2023 Diagnosis: Bilateral axillary suppurative hidradenitis. Condition: Stable. Disposition: Home. Activity: As tolerated. No heavy lifting. Plan: Follow up in my office in 1 week. Call for appointment at [phone]. The patient advised she can use some triple antibiotic ointment over the staple site if she has no allergies and then might l eave it open or just put a gauze, try not to cover the hair harboring or gland harboring areas with t ape. She can use probably a short that may be just compressing in that area to minimize any glue or any tape or any adhesive. The patient tolerated the procedure well. Patient to follow up in our off ice in a week. LOGAN/ADAM Voice ID: [id number] Report ID: [id number]
== END 2023-07-27 11:40 | disposition home or self-care (01) ==
LOC: OR 07:12
PROVIDERS: ATTEND Surgery
PROC: 0JBD0ZZ Excision of Right Upper Arm Subcutaneous Tissue and Fascia, Open Approach (ICD-10-PCS; 2023-07-27)
PROC: 0JBF0ZZ Excision of Left Upper Arm Subcutaneous Tissue and Fascia, Open Approach (ICD-10-PCS; principal; 2023-07-27 09:00)
DX: L73.2 Hidradenitis suppurativa (principal); I10 Essential (primary) hypertension; J45.909 Unspecified asthma, uncomplicated; M10.9 Gout, unspecified
CPT/HCPCS: 93005; 85025; 80048; 36415; 88304; 71046; 11450; J2704; J1100; J2001; J3010; J2405; J7120; J0690; 88305